=== PATIENT | female | born 1945 | race Caucasian/White ===

== ENCOUNTER 2017-06-24 06:33 | Inpatient (IN) | payer MEDICARE, BC ==
[2017-06-24] MEDS ORDERED: Albuterol/Ipratropium NEB.SOL* Albuterol 2.5 MG/Ipratropium 0.5 MG 3 ML INH PRN (06:45)
[2017-06-24] MEDS ORDERED: Albuterol 2.5 MG/3 ML NEB.SOL* (0.083%) INH PRN ×2 (06:45→10:57)
[2017-06-24] MEDS ORDERED: methylPREDNISolone 125 MG* 2 ML VIAL IV ONE (06:46)
[2017-06-24] MEDS ORDERED: Levofloxacin 750 MG IVPREMIX(* 750 MG/150 ML BAG IVPB ONE (06:46)
[2017-06-24] MEDS ORDERED: Magnesium Sulfate 2 GM IV* 2 GM/50 ML BAG IVPB ONE (06:47)
[2017-06-24] MEDS ORDERED: Albuterol/Ipratropium NEB.SOL* Albuterol 2.5 MG/Ipratropium 0.5 MG 3 ML ONE (07:37)
[2017-06-24] MEDS ORDERED: Albuterol 2.5 MG/3 ML NEB.SOL* (0.083%) ONE (07:38)
[2017-06-24] MEDS: NS 0.9% 1000 ML*IV.FLUID IV ONE ×2 (08:08→09:57)
[2017-06-24 08:15] LABS: ABS Basophils 0 10^3/ul (0-0.2); ABS Eosinophils 0.1 10^3/ul (0-0.6); ABS Lymphocytes 0.8 10^3/ul (1.0-4.8); ABS Monocytes 0.6 10^3/ul (0-0.8); ABS Nucleated RBC 0 10^3/ul; Eosinophil % 0.6 % (0-6); Hematocrit 44 % (35-47); Hemoglobin 14.4 g/dl (12.0-16.0); Lymphocyte % 6.7 % (25-47); Mean Corpuscular HGB Conc 33 g/dl (31-36); Mean Corpuscular Hemoglobin 30 pg (27-31); Mean Corpuscular Volume 92 fL (80-97); Mean Platelet Volume 7 um3 (7.4-10.4); Nucleated Red Blood Cells % 0.2; Platelet Count 508 10^3/ul (150-450); Red Blood Count 4.75 10^6/ul (4.0-5.4); Red Cell Distribution Width 14 % (10.5-15); White Blood Count 12.5 10^3/ul (3.5-10.8)
[2017-06-24 08:22] LABS: INR 1.09 (0.77-1.02)
[2017-06-24 08:27] LABS: EGFR Non-African American 110.4 (>60)
--- NOTE | 2017-06-24 09:36 | RAD ---
Indication: Shortness of breath. Chronic obstructive pulmonary disease. Comparison: December 12, 2015 Technique: Upright AP 0703 hours Report: Elevated lung volumes and both diffuse mild prominence of the interstitial markings and patchy rarefaction of the mid to upper lung zone interstitial markings. Upper normal heart size. Prominent mildly ill-defined central pulmonary vasculature. Subtle suggestion of thickened peripheral interlobular septa. Minimal dependent pleural effusions. Negative for pneumothorax. IMPRESSION: The constellation of findings is most suspicious for mild pulmonary vascular congestion and interstitial edema superimposed on chronic obstructive pulmonary disease in the appropriate clinical setting.
[2017-06-24] MEDS ORDERED: Acetaminophen TAB* 325 MG PO PRN (10:53)
[2017-06-24] MEDS ORDERED: Azithromycin IV(*) 500 MG in D5W 250 ML BAG* 250 ML IVPB SCH (11:00)
[2017-06-24] MEDS ORDERED: Ondansetron INJ* 2 MG/ML VIAL IV PRN (11:31)
[2017-06-24] MEDS ORDERED: cefTRIAXone(*) 1 GM in NS 0.9% 50 ML* 50 ML IVPB SCH (12:00)
[2017-06-24] MEDS: Albuterol/Ipratropium NEB.SOL* Albuterol 2.5 MG/Ipratropium 0.5 MG 3 ML INH SCH ×4 (12:10→23:37)
[2017-06-24] MEDS: NS 0.9% 1000 ML* 1,000 ML IV SCH ×2 (12:26→21:19)
[2017-06-24] MEDS: cefTRIAXone(*) 1 GM in D5W 50 ML BAG* 50 ML IVPB SCH (13:10)
[2017-06-24] MEDS: Azithromycin IV(*) 500 MG in NS 0.9% 250 ML* 250 ML IVPB SCH (13:38)
[2017-06-24] MEDS: Heparin VIAL(*) 5000 UNITS/ML VIAL (FIVE THOUSAND) SUBCUT SCH ×2 (15:20→22:15)
[2017-06-24] MEDS: methylPREDNISolone SOD 40 MG* 1 ML VIAL IV SCH ×2 (15:22→23:36)
[2017-06-24 17:38] LABS: Urine Appearance Clear; Urine Blood Negative (Negative); Urine Color Straw; Urine Ketones Negative (Negative); Urine Protein Negative (Negative); Urine Specific Gravity 1.003 (1.010-1.030); Urine Urobilinogen Negative (Negative)
--- NOTE | 2017-06-24 18:41 | ED ---
Felix Espinoza Thomas, scribed for Darryl Vieyra MD on 06/24/17 at 0815 . Progress - Progress Note Progress Note: The patient is a sign out from Dr. Kiran, pending CXR and labs. The patient complains of shortness of breath, a productive cough, fever, and chills. She denies nausea, vomiting, and chest pain. Past medical history includes COPD. PHYSICAL EXAM: VITAL SIGNS: Reviewed. GENERAL: ~Patient is a well-developed and nourished female who is lying comfortable in the stretcher. ~Patient is not in any acute respiratory distress. HEAD AND FACE: No signs of trauma. ~No ecchymosis, hematomas or skull depressions. No sinus tenderness. EYES: PERRLA, EOMI x 2, No injected conjunctiva, no nystagmus. EARS: Hearing grossly intact. Ear canals and tympanic membranes are within normal limits. MOUTH: Oropharynx within normal limits. NECK: Supple, trachea is midline, no adenopathy, no JVD, no carotid bruit, no c- spine tenderness, neck with full ROM. CHEST: Symmetric, no tenderness at palpation LUNGS: Decreased breath sounds bilaterally. There are crackles in both bases. CVS: Regular rate and rhythm, S1 and S2 present, no murmurs or gallops appreciated. ABDOMEN: Soft, non-tender. No signs of distention. No rebound no guarding, and no masses palpated. Bowel sounds are normal. EXTREMITIES: FROM in all major joints, no edema, no cyanosis or clubbing. NEURO: Alert and oriented x 3. No acute neurological deficits. Speech is normal and follows commands. SKIN: Dry and warm CXR. Interpreted by radiologist. Impression: The constellation of findings is most suspicious for mild pulmonary vascular congestion and interstitial edema superimposed on chronic obstructive pulmonary disease in the appropriate clinical setting. Dr. Vieyra has reviewed this report. ASSESMENT AND PLAN: Test results show a WBC 12.5, CO2 34, troponin 0.04, BNP 265. Influenza A and B are negative. I believe the patient is developing right lower lobe pneumonia. The patient was given Levaquin. I discussed the case with Dr. Garcia, who accepts the patient for admission. Condition is stable. Course/Dx - Diagnoses Provider Diagnoses: COPD exacerbation, Pneumonia - Provider Notifications Discussed Care Of Patient With: Jade Garcia Time Discussed With Above Provider: 11:43 Instructed by Provider To: Admit As Inpatient The documentation as recorded by the Felix pérez Thomas accurately reflects the service I personally performed and the decisions made by me, Darryl Vieyra MD.
--- NOTE | 2017-06-24 19:12 | HP ---
CC: Dr. Alas * ADMISSION HISTORY AND PHYSICAL: DATE OF ADMISSION: PRIMARY CARE PROVIDER: Dr. Alas. MY ATTENDING WHILE IN THE HOSPITAL: Dr. Jade Garcia.* (DICTATED BY LYDIA CAPELLAN) CHIEF COMPLAINT: Severe dyspnea on exertion for 1 day. HISTORY OF PRESENT ILLNESS: Ms. Ames is a 72-year-old female with a past medical history significant for severe COPD, diastolic congestive heart failure , who was admitted to this institution in November 2015 for severe lobar pneumonia. The patient also has chronic hypoxic and hypercarbic respiratory failure needing 2 L of oxygen at home at all times. The patient presents to the emergency department today with 1 day of severe dyspnea on exertion being unable to around her small apartment without getting short of breath. The patient states she also had presyncope, where she felt lightheaded like she was going to pass out without palpitations, chest pain, or other prodrome of symptoms. She just felt severely short of breath. The patient has had 1-1/2 half weeks of stuffiness, nasal congestion, cough producing light yellow sputum without blood or purulence. The patient states that she and her whole family have gotten this similar. The patient denies any sick contacts with patients with known flu. The patient has muscle aches, diarrhea, abdominal pain. The patient has subjective and objective temperature elevations up to 100.8. The patient states that her temperature generally runs low, so she very rarely gets fever. The patient was on 2 L of oxygen at home, but had to increase it to 3 L during her illness, but did not have severe respiratory distress until yesterday. The patient has not had any episodes like this before except for her episode of pneumonia 2 years ago, after which the patient was at [facility] after her discharge here 2 years ago and was there for a month and then was discharged to home where she has been functioning well until now. The patient does not take her Combivent Respimat frequently but took it a couple of times during her respiratory distress and states it helps a little bit. The patient denies chest pain, increased swelling in her legs. The patient has intermittent swelling in her legs for which she takes Lasix as needed with good effect. The patient has no other changes in her diet. The patient denies history of hypertension, hyperlipidemia, diabetes. The patient has not smoked recently. We were asked to evaluate for admission due to respiratory distress. PAST MEDICAL HISTORY: COPD, diastolic CHF, pneumonia, chronic hypoxic, hypercapnic respiratory failure requiring 2 L of oxygen. PAST SURGICAL HISTORY: Cholecystectomy, tonsillectomy, and bilateral cataract removal. MEDICATIONS: 1. Singulair 10 mg p.o. daily. 2. Furosemide 10 mg p.o. daily as needed for leg swelling. 3. Symbicort 160/4.5 two puffs inhalation b.i.d. 4. Spiriva cap 1 inhalation daily. 5. Combivent Respimat 1 puff 2 inhalations q.6 hours as needed for shortness of breath and wheezing. ALLERGIES: IBUPROFEN. FAMILY HISTORY: The patient's mother of cancer when she was 91, had COPD exacerbations. The patient's father of colon cancer, which was metastatic from his lungs at the age of 86. The patient's grandfather had a myocardial infarction. The patient has a son with type 2 diabetes. The patient has 3 children, 2 of which are alive and healthy. SOCIAL HISTORY: The patient is a former smoker, quit in 1994. The patient denies any alcohol use. The patient denies ever using illicit drugs. 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 The patient was in her 40s. Has a second from which she is . Had 3 children with her first . The patient's healthcare proxy is her son, Sancho Sims. REVIEW OF SYSTEMS: A 14-point review of systems was completed and is negative except as stated in the HPI. PHYSICAL EXAMINATION GENERAL: The patient is a 72-year-old female, who appears stated age and sitting in the bed, in moderate distress in a tripod position with significantly increased work of breathing including accessory muscle use. VITAL SIGNS: On arrival to the emergency department, temperature 98.3, heart rate 115, respiratory rate 20, oxygen saturation 83% on 5 L nasal cannula, increased to 91% on 8 L, blood pressure 137/72. HEENT: Head: Normocephalic, atraumatic. Sclerae anicteric. No conjunctival injection. Nasal mucosa is moist. Oral mucosa moist. No pharyngeal erythema, discharge, postnasal drainage, or exudates noted. NECK: Supple, nontender. No lymphadenopathy. No carotid bruits auscultated. RESPIRATORY: Diminished throughout. Slight expiratory wheezes with prolonged expiratory phase in the bilateral lower lobes. No other adventitious lung sounds. Good air exchange bilaterally. Negative egophony. CARDIAC: Tachycardic. No clicks, murmurs, gallops, or rubs. Pulses 2+ in bilateral radial, dorsalis pedis, and posterior tibialis areas. 1+ edema noted in the bilateral lower extremities. ABDOMEN: Soft, nontender, nondistended. Bowel sounds present, normoactive in all 4 quadrants. No hepatosplenomegaly. No abdominal bruits auscultated. GENITOURINARY: No suprapubic tenderness or CVA tenderness. NEURO: Cranial nerves II through XII intact. No focal deficits. PSYCHIATRIC: The patient is pleasant and cooperative. SKIN: Clean, dry, intact. No rash. No bruising. DIAGNOSTIC STUDIES/LAB DATA: White blood cell count 12.5, hemoglobin 14.4, platelet count 508, neutrophil percentage 88%. INR 1.09, APTT 31.1. ABG pH 7.42, ABG PCO2 6.3, ABG PO2 67, ABG bicarbonate 35.4, ABG oxygen saturation 97% , ABG base excess 13.5. Sodium 131, potassium 4.3, chloride 89, carbon dioxide 34, anion gap 8, BUN 10, creatinine 0.54, glucose 153. Lactic acid 1.5. Calcium 9.8. Total bilirubin 0.4, AST 20, ALT 8, alkaline phosphatase 69. Troponin I 0.04. CRP 265.34. BNP 74. Total protein 8.0. Albumin 3.5, globulin 4.5, albumin, globulin ratio of 0.8. Chest x-ray read as constellation of findings most suspicious for mild pulmonary vascular congestion, interstitial edema, superimposed on chronic obstructive pulmonary disease in appropriate clinical setting. An EKG showed sinus tachycardia, regular axis, no ST-segment changes, no other abnormalities. IMPRESSION AND PLAN: The patient is a 72-year-old female with a past medical history significant for chronic obstructive pulmonary disease, pneumonia, diastolic congestive heart failure, and chronic hypoxic and hypercarbic respiratory failure on 2 L oxygen at home, who presents with a viral illness and chronic obstructive pulmonary disease exacerbation. The patient will be admitted to the ICU for Vapotherm to avoid exhaustion. The patient was started on empiric antibiotics for chronic obstructive pulmonary disease exacerbation and possible pneumonia. The patient will be started on steroids and will be treated for chronic obstructive pulmonary disease exacerbation. 1. Chronic obstructive pulmonary disease exacerbation. The patient has a viral upper respiratory infection for 1-1/2 weeks at this point, which has been exacerbating her underlying pulmonary disease. This has culminated in the patient needing to come to the emergency department today because she could not walk across her short apartment without becoming significantly short of breath and presyncopizing. The patient has had a productive cough for the duration of her upper respiratory illness with white sputum without blood. The patient has no signs of lobar pneumonia on chest x-ray. The patient's CRP is significantly elevated. We will order an influenza swab, which is pending and a procalcitonin , which is pending. Hold off on giving Tamiflu at this point, but we will give antibiotics for their anti-inflammatory effects and discontinue as indicated. The patient will be started on Solu-Medrol 40 mg IV q.8 hours. The patient will be on DuoNeb inhalations q.4 hours while awake as scheduled. The patient will be continued on her home Symbicort, Singulair, and Spiriva. The patient will be given guaifenesin for pulmonary toilet. The patient's ABG showed normal pH, elevated CO2, decreased pO2. The patient will be started on Vapotherm to avoid exhaustion and will be tapered off as tolerated. 2. Diastolic congestive heart failure. The patient was found to have indications of diastolic congestive heart failure on her echo previously in the hospital. The patient had intermittent leg swelling. The patient will be continued on her home dose of Lasix. The patient will be getting judicious fluids. The patient received 2.5 L while in the hospital. While in the emergency department, the patient will receive 2 additional units of 125 mL an hour and monitored for fluid overload. The patient will be on strict I and O's and daily weights. 3. Elevated troponin. The patient's initial troponin was 0.04. Repeat pending. This is likely due to demand ischemia. The patient has no symptoms or EKG evidence of ischemia. We will draw 3 total troponins. We will order hemoglobin A1c and lipid panel to assess for the patient's risk of myocardial infarction and the patient may be eligible for outpatient stress testing when she is not in acute illness. 4. FEN. The patient will have a heart healthy diet without caffeine. The patient will have fluids as above. 5. DVT prophylaxis. The patient is high risk. The patient will have heparin subcu and SCDs. 6. Code status. The patient would like to be a full code despite being listed as DNR in the computer. The patient's healthcare proxy is her son, Sancho Sims. TIME SPENT: Approximately 60 minutes was spent on this admission, 30 of which was spent [id number] with the patient obtaining history and physical and discussing treatment plan. This plan has been discussed with my attending, Dr. Jade Garcia, and she is in agreement. LYDIA CAPELLAN [id number]/CPS #: [id number] CLAIRE
--- NOTE | 2017-06-24 19:30 | ED ---
Vidal Espinoza Jason, scribed for Dean Kiran MD on 06/24/17 at 0650 . Shortness of Breath - HPI Summary HPI Summary: This patient is a 72 year old F presenting to [facility] with a chief complaint of SOB since 2 weeks ago. She states she has felt sick for 2 weeks and woke up today with increased SOB. The patient rates the pain 0/10 in severity. Symptoms aggravated by nothing. Symptoms alleviated by nothing. Patient reports experiencing fever in the last 2 weeks. - History of Current Complaint Chief Complaint: EDGeneral Hx Obtained From: Patient Onset/Duration: Lasting Weeks - 2 weeks Timing: Constant Associated Signs & Symptoms: Fever - Allergy/Home Medications Allergies/Adverse Reactions: Allergies Allergy/AdvReac Type Severity Reaction Status Date / Time MS Ibuprofen [Ibuprofen] Allergy Swelling Verified 06/24/17 06:38 Of Face,Lips,& Throat PMH/Surg Hx/FS Hx/Imm Hx Previously Healthy: No Endocrine/Hematology History: Denies: Hx Diabetes, Hx Systemic Lupus Erythematosus Cardiovascular History: Denies: Hx Congestive Heart Failure, Hx Hypertension Respiratory History: Reports: Hx Chronic Obstructive Pulmonary Disease (COPD) History: Denies: Hx Dialysis, Hx Renal Disease Musculoskeletal History: Denies: Hx Rheumatoid Arthritis Sensory History: Reports: Hx Contacts or Glasses Opthamlomology History: Reports: Hx Contacts or Glasses - Cancer History Hx Chemotherapy: No - Surgical History Surgery Procedure, Year, and Place: Gall Bladder removal. Tonsillectomy. OU Cataract extraction. Cholecystetomy - Immunization History Date of Tetanus Vaccine: utd Date of Influenza Vaccine: none Infectious Disease History: Yes Infectious Disease History: Denies: Hx of Known/Suspected MRSA, Traveled Outside the [place] in Last 30 Days - Family History Known Family History: Negative: Renal Disease, Blood Disorder - Social History Alcohol Use: None Substance Use Type: Reports: None Smoking Status (MU): Former Smoker Type: Cigarettes Review of Systems Positive: Fever Positive: Shortness Of Breath All Other Systems Reviewed And Are Negative: Yes Physical Exam - Summary Physical Exam Summary: VITAL SIGNS: Reviewed. GENERAL: ~Patient is a well-developed and nourished female who is lying comfortable in the stretcher. Patient is not in any acute respiratory distress. HEAD AND FACE: No signs of trauma. No ecchymosis, hematomas or skull depressions. No sinus tenderness. EYES: PERRLA, EOMI x 2, No injected conjunctiva, no nystagmus. EARS: Hearing grossly intact. Ear canals and tympanic membranes are within normal limits. MOUTH: Oropharynx within normal limits. NECK: Supple, trachea is midline, no adenopathy, no JVD, no carotid bruit, no c- spine tenderness, neck with full ROM. CHEST: Symmetric, no tenderness at palpation LUNGS: Decreased breath sounds bilaterally, tachypnic, No wheezing or crackles. CVS: Regular rate and rhythm, S1 and S2 present, no murmurs or gallops appreciated. tachycardic. ABDOMEN: Soft, non-tender. No signs of distention. No rebound no guarding, and no masses palpated. Bowel sounds are normal. EXTREMITIES: FROM in all major joints, no edema, no cyanosis or clubbing. NEURO: Alert and oriented x 3. No acute neurological deficits. Speech is normal and follows commands. SKIN: Dry and warm Triage Information Reviewed: Yes Vital Signs On Initial Exam: Initial Vitals Temp Pulse Resp BP Pulse Ox 98.3 F 115 20 137/72 83 06/24/17 06:36 06/24/17 06:36 06/24/17 06:36 06/24/17 06:36 06/24/17 06:36 Vital Signs Reviewed: Yes Diagnostics - Vital Signs Vital Signs Temp Pulse Resp BP Pulse Ox 06/24/17 06:36 98.3 F 115 20 137/72 83 - Laboratory Lab Statement: Any lab studies that have been ordered have been reviewed, and results considered in the medical decision making process. Course/Dx - Course Course Of Treatment: This patient is a 72 year old F presenting to [facility] with a chief complaint of SOB since 2 weeks ago. She states she has felt sick for 2 weeks and woke up today with increased SOB. The patient rates the pain 0/10 in severity. Symptoms aggravated by nothing. Symptoms alleviated by nothing. Patient reports experiencing fever in the last 2 weeks. In the ED course the patient was given IV Fluids. - Diagnoses Provider Diagnoses: Difficulty breathing Discharge - Discharge Plan Condition: Fair Disposition: OTHER Discharge Disposition Comment: Patient is signed out to Dr. Vieyra, pending disposition, awaiting CXR, labs Referrals: Arsalan Alas MD [Primary Care Provider] - The documentation as recorded by the Vidal pérez Jason accurately reflects the service I personally performed and the decisions made by me, Dean Kiran MD.
[2017-06-24] MEDS: Mometasone/Formoter 200/5 MDI INH SCH (20:14)
[2017-06-24] MEDS: guaiFENesin ER TAB 600 MG PO SCH (22:14)
[2017-06-25] MEDS: Albuterol/Ipratropium NEB.SOL* Albuterol 2.5 MG/Ipratropium 0.5 MG 3 ML INH SCH ×5 (03:47→20:03)
[2017-06-25 04:06] LABS: Hematocrit 34 % (35-47); Hemoglobin 10.8 g/dl (12.0-16.0); Mean Corpuscular HGB Conc 32 g/dl (31-36); Mean Corpuscular Hemoglobin 29 pg (27-31); Mean Corpuscular Volume 92 fL (80-97); Mean Platelet Volume 7 um3 (7.4-10.4); Platelet Count 449 10^3/ul (150-450); Red Blood Count 3.68 10^6/ul (4.0-5.4); Red Cell Distribution Width 14 % (10.5-15); White Blood Count 12.8 10^3/ul (3.5-10.8)
[2017-06-25 04:21] LABS: ABS Basophils 0 10^3/ul (0-0.2); ABS Eosinophils 0 10^3/ul (0-0.6); ABS Lymphocytes 0.6 10^3/ul (1.0-4.8); ABS Monocytes 0.2 10^3/ul (0-0.8); ABS Nucleated RBC 0 10^3/ul; Eosinophil % 0 % (0-6); Lymphocyte % 4.5 % (25-47); Nucleated Red Blood Cells % 0.1
[2017-06-25 04:39] LABS: EGFR Non-African American 139.8 (>60)
[2017-06-25] MEDS: Heparin VIAL(*) 5000 UNITS/ML VIAL (FIVE THOUSAND) SUBCUT SCH ×3 (06:27→22:27)
[2017-06-25] MEDS: Mometasone/Formoter 200/5 MDI INH SCH ×2 (07:59→20:04)
[2017-06-25] MEDS: methylPREDNISolone SOD 40 MG* 1 ML VIAL IV SCH ×2 (08:12→16:30)
[2017-06-25] MEDS ORDERED: Tiotropium CAP.INH* CAP.INH/18 MCG (USE ORDER SET !) INH SCH (09:00)
[2017-06-25] MEDS ORDERED: Influenza VAC *QUAD* 2017-18* 0.5 ML SYRINGE IM ONE (09:00)
[2017-06-25] MEDS ORDERED: Furosemide TAB* 20 MG PO SCH (09:00)
[2017-06-25] MEDS ORDERED: Furosemide IV* 10 MG/ML VIAL (40 MG) IV ONE (09:22)
--- NOTE | 2017-06-25 09:30 | PN ---
Subjective Date of Service: 06/25/17 Interval History: Pt continues to feel SOB and desats when moves in bed on Vapotherm at 40 L, denies CP Objective Active Medications: Acetaminophen (Tylenol Tab*) 650 mg PO Q6H PRN PRN Reason: FEVER/PAIN Albuterol (Ventolin 2.5 Mg/3 Ml Neb.Joselyn*) 2.5 mg INH Q2H PRN PRN Reason: SOB/WHEEZING Albuterol/Ipratropium (Duoneb (Albuterol 2.5 Mg/Ipratropium 0.5 Mg)) 1 neb INH [id number] Last Admin: 06/25/17 07:53 Dose: 1 neb Furosemide (Lasix Tab*) 10 mg PO DAILY [facility] Stop: 06/25/17 23:59 Furosemide (Lasix Iv*) 40 mg IV 0800,1700 [facility] Guaifenesin (Mucinex*) 1,200 mg PO BID [facility] Last Admin: 06/24/17 22:14 Dose: 1,200 mg Heparin Sodium (Porcine) (Heparin Vial(*)) 5,000 units SUBCUT Q8HR [facility] Last Admin: 06/25/17 06:27 Dose: 5,000 units Sodium Chloride (Ns 0.9% 1000 Ml*) 1,000 mls @ 125 mls/hr IV PER RATE [facility] Stop: 06/25/17 18:59 Last Admin: 06/24/17 21:19 Dose: 125 mls/hr Azithromycin 500 mg/ Sodium (Chloride) 250 mls @ 250 mls/hr IVPB Q24H [facility] Last Admin: 06/24/17 13:38 Dose: 250 mls/hr Ceftriaxone Sodium 1 gm/ (Dextrose) 50 mls @ 200 mls/hr IVPB Q24H [facility] Last Admin: 06/24/17 13:10 Dose: 200 mls/hr Methylprednisolone Sodium Succinate (Solu-Medrol 40 Mg) 40 mg IV 0000,0800, 1600 [facility] Last Admin: 06/25/17 08:12 Dose: 40 mg Mometasone Furoate/Formoterol Fumar (Dulera 200/5 Mdi*) 2 puff INH BID [facility] PRN Reason: Protocol Last Admin: 06/25/17 07:59 Dose: 2 puff Montelukast Sodium (Singulair Tab*) 10 mg PO BEDTIME STEVE Ondansetron HCl (Zofran Inj*) 4 mg IV Q6H PRN PRN Reason: NAUSEA Vital Signs - 8 hr 06/25/17 06/25/17 06/25/17 02:00 03:00 03:42 Temperature 97.4 F Pulse Rate 74 79 Respiratory 22 17 Rate Blood Pressure 117/55 112/68 (mmHg) O2 Sat by Pulse 94 94 Oximetry 06/25/17 06/25/17 06/25/17 04:00 05:00 06:00 Temperature Pulse Rate 78 79 73 Respiratory 21 20 21 Rate Blood Pressure 109/69 (mmHg) O2 Sat by Pulse 91 90 92 Oximetry 06/25/17 06/25/17 06/25/17 06:09 07:00 07:31 Temperature 98.1 F Pulse Rate 72 66 Respiratory 21 24 Rate Blood Pressure 101/54 96/53 (mmHg) O2 Sat by Pulse 93 93 Oximetry 06/25/17 06/25/17 06/25/17 07:57 08:00 08:01 Temperature Pulse Rate 77 81 78 Respiratory 18 18 24 Rate Blood Pressure 127/66 (mmHg) O2 Sat by Pulse 92 94 96 Oximetry Oxygen Devices in Use Now: High Flow Heated Nasal Cannula Appearance: 72 yo F in nAD, AAOx3 Eyes: No Scleral Icterus, PERRLA Ears/Nose/Mouth/Throat: NL Teeth, Lips, Gums, Mucous Membranes Moist Neck: NL Appearance and Movements; NL JVP, Trachea Midline Respiratory: Symmetrical Chest Expansion and Respiratory Effort, - - very decreased breath sounds and rales up to lowr mid lungs b/l Cardiovascular: NL Sounds; No Murmurs; No JVD, RRR Abdominal: NL Sounds; No Tenderness; No Distention Lymphatic: No Cervical Adenopathy Extremities: No Edema, No Clubbing, Cyanosis Skin: No Rash or Ulcers, No Nodules or Sclerosis Neurological: Alert and Oriented x 3, NL Muscle Strength and Tone Result Diagrams: 06/25/17 04:00 06/25/17 04:00 Microbiology and Other Data: Microbiology 06/24/17 17:25 Legionella Urinary Antigen - Final Urine Negative Legionella Streptococcus pneumoniae Ag Screen - Final Negative S. pneumo Antigen 06/24/17 17:25 Nasal Screen MRSA (PCR)([facility]) - Final Nasal Mrsa Not Detected Assess/Plan/Problems-Billing Assessment: 72 yo F with h/o COPD(on 02 at 2 L), diastolic CHF presents after an URI lasting 2 weeks with acute respiratory failure - Patient Problems (1) COPD exacerbation Comment: cont Solu Medrol, cont STEVE nebs and antibiotics for acute COPD exacerbation (2) Acute hypoxemic respiratory failure Comment: On Vapotherm at 40 L due to a combination of CHF and COPD (3) CHF (congestive heart failure) Comment: Start Lasix IV, d/c PO Lasix, get echo in aM troponin positive due to demand ischemia (4) DVT prophylaxis Comment: Heparin sub q Status and Disposition: inpatient
[2017-06-25] MEDS: guaiFENesin ER TAB 600 MG PO SCH ×2 (09:41→22:27)
[2017-06-25] MEDS: cefTRIAXone(*) 1 GM in D5W 50 ML BAG* 50 ML IVPB SCH (13:06)
[2017-06-25] MEDS: Azithromycin IV(*) 500 MG in NS 0.9% 250 ML* 250 ML IVPB SCH (13:26)
[2017-06-25] MEDS: Furosemide IV* 10 MG/ML 10 ML VIAL (100 MG) IV SCH (16:30)
[2017-06-25] MEDS: Montelukast Sodium TAB* 10 MG PO SCH (22:27)
[2017-06-26] MEDS: Albuterol/Ipratropium NEB.SOL* Albuterol 2.5 MG/Ipratropium 0.5 MG 3 ML INH SCH ×4 (00:45→19:14)
[2017-06-26] MEDS: methylPREDNISolone SOD 40 MG* 1 ML VIAL IV SCH ×3 (01:30→16:17)
[2017-06-26] MEDS: Heparin VIAL(*) 5000 UNITS/ML VIAL (FIVE THOUSAND) SUBCUT SCH ×3 (06:15→21:19)
[2017-06-26 06:45] LABS: ABS Basophils 0 10^3/ul (0-0.2); ABS Eosinophils 0 10^3/ul (0-0.6); ABS Lymphocytes 0.6 10^3/ul (1.0-4.8); ABS Monocytes 0.4 10^3/ul (0-0.8); ABS Nucleated RBC 0 10^3/ul; Eosinophil % 0 % (0-6); Hematocrit 36 % (35-47); Hemoglobin 11.6 g/dl (12.0-16.0); Lymphocyte % 3.5 % (25-47); Mean Corpuscular HGB Conc 33 g/dl (31-36); Mean Corpuscular Hemoglobin 30 pg (27-31); Mean Corpuscular Volume 91 fL (80-97); Mean Platelet Volume 7 um3 (7.4-10.4); Nucleated Red Blood Cells % 0; Platelet Count 552 10^3/ul (150-450); Red Blood Count 3.89 10^6/ul (4.0-5.4); Red Cell Distribution Width 14 % (10.5-15)
[2017-06-26 06:57] LABS: EGFR Non-African American 129.5 (>60)
[2017-06-26] MEDS: Mometasone/Formoter 200/5 MDI INH SCH ×2 (08:24→19:14)
[2017-06-26] MEDS: guaiFENesin ER TAB 600 MG PO SCH ×2 (09:20→21:18)
[2017-06-26] MEDS: Furosemide IV* 10 MG/ML 10 ML VIAL (100 MG) IV SCH (10:02)
--- NOTE | 2017-06-26 10:17 | PN ---
Subjective Date of Service: 06/26/17 Interval History: Pt had diuresed 2200 ml at night. Down to 10 L Nc. Still feeling very weak Objective Active Medications: Acetaminophen (Tylenol Tab*) 650 mg PO Q6H PRN PRN Reason: FEVER/PAIN Albuterol (Ventolin 2.5 Mg/3 Ml Neb.Joselyn*) 2.5 mg INH Q2H PRN PRN Reason: SOB/WHEEZING Last Admin: 06/25/17 16:31 Dose: 2.5 mg Albuterol/Ipratropium (Duoneb (Albuterol 2.5 Mg/Ipratropium 0.5 Mg)) 1 neb INH [id number] AWAKE [facility] Last Admin: 06/26/17 08:27 Dose: 1 neb Furosemide (Lasix Iv*) 40 mg IV 0800,1700 [facility] Stop: 06/26/17 14:00 Last Admin: 06/26/17 10:02 Dose: 40 mg Guaifenesin (Mucinex*) 1,200 mg PO BID [facility] Last Admin: 06/26/17 09:20 Dose: 1,200 mg Heparin Sodium (Porcine) (Heparin Vial(*)) 5,000 units SUBCUT Q8HR [facility] Last Admin: 06/26/17 06:15 Dose: 5,000 units Azithromycin 500 mg/ Sodium (Chloride) 250 mls @ 250 mls/hr IVPB Q24H [facility] Last Admin: 06/25/17 13:26 Dose: 250 mls/hr Ceftriaxone Sodium 1 gm/ (Dextrose) 50 mls @ 200 mls/hr IVPB Q24H [facility] Last Admin: 06/25/17 13:06 Dose: 200 mls/hr Methylprednisolone Sodium Succinate (Solu-Medrol 40 Mg) 40 mg IV 0000,0800, 1600 [facility] Last Admin: 06/26/17 09:20 Dose: 40 mg Mometasone Furoate/Formoterol Fumar (Dulera 200/5 Mdi*) 2 puff INH BID STEVE PRN Reason: Protocol Last Admin: 06/26/17 08:24 Dose: 2 puff Montelukast Sodium (Singulair Tab*) 10 mg PO BEDTIME [facility] Last Admin: 06/25/17 22:27 Dose: 10 mg Ondansetron HCl (Zofran Inj*) 4 mg IV Q6H PRN PRN Reason: NAUSEA Vital Signs - 8 hr 06/26/17 06/26/17 06/26/17 03:00 04:00 05:00 Temperature 98 F Pulse Rate 83 61 69 Respiratory 19 19 18 Rate Blood Pressure 124/72 124/55 127/74 (mmHg) O2 Sat by Pulse 97 96 94 Oximetry 06/26/17 06/26/17 06/26/17 06:00 06:01 07:00 Temperature Pulse Rate 80 78 66 Respiratory 22 17 19 Rate Blood Pressure 137/65 124/62 (mmHg) O2 Sat by Pulse 94 94 95 Oximetry 06/26/17 06/26/17 06/26/17 07:42 08:00 08:28 Temperature 98.2 F Pulse Rate 70 72 Respiratory 20 14 Rate Blood Pressure 131/61 (mmHg) O2 Sat by Pulse 95 94 Oximetry 06/26/17 06/26/17 06/26/17 08:29 09:00 09:01 Temperature Pulse Rate 72 96 85 Respiratory 14 22 21 Rate Blood Pressure 135/58 (mmHg) O2 Sat by Pulse 94 95 95 Oximetry 06/26/17 10:00 Temperature Pulse Rate 109 Respiratory 20 Rate Blood Pressure 115/63 (mmHg) O2 Sat by Pulse 95 Oximetry Oxygen Devices in Use Now: High Flow Nasal Cannula Appearance: 72 yo f in nAD, AAOx3 Eyes: No Scleral Icterus, PERRLA Ears/Nose/Mouth/Throat: NL Teeth, Lips, Gums, Mucous Membranes Moist Neck: NL Appearance and Movements; NL JVP, Trachea Midline Respiratory: Symmetrical Chest Expansion and Respiratory Effort, - - b/l lowwr lung rhonchi and scant wheezes Cardiovascular: NL Sounds; No Murmurs; No JVD, RRR Abdominal: NL Sounds; No Tenderness; No Distention, No Hepatosplenomegaly Lymphatic: No Cervical Adenopathy Extremities: No Edema, No Clubbing, Cyanosis Skin: No Rash or Ulcers, No Nodules or Sclerosis Neurological: Alert and Oriented x 3, NL Muscle Strength and Tone Result Diagrams: 06/26/17 06:03 06/26/17 06:03 Microbiology and Other Data: Microbiology 06/24/17 17:25 Legionella Urinary Antigen - Final Urine Negative Legionella Streptococcus pneumoniae Ag Screen - Final Negative S. pneumo Antigen 06/24/17 17:25 Nasal Screen MRSA (PCR)(LITO) - Final Nasal Mrsa Not Detected Assess/Plan/Problems-Billing Assessment: 72 yo F with h/o COPD(on 02 at 2 L), diastolic CHF presents after an URI lasting 2 weeks with acute respiratory failure - Patient Problems (1) COPD exacerbation Comment: cont Solu Medrol, cont STEVE nebs and antibiotics for acute COPD exacerbation Worsening leukocytosis due to steroids (2) Acute hypoxemic respiratory failure Comment: due to a combination of CHF and COPD down to 10 L02 (3) CHF (congestive heart failure) Comment: will tx with another dose of Lasix IV, then hold and monitor troponin positive due to demand ischemia Echo ordered (4) DVT prophylaxis Comment: Heparin sub q Status and Disposition: inpatient
[2017-06-26] MEDS: cefTRIAXone(*) 1 GM in D5W 50 ML BAG* 50 ML IVPB SCH (12:34)
[2017-06-26] MEDS: Azithromycin IV(*) 500 MG in NS 0.9% 250 ML* 250 ML IVPB SCH (13:05)
[2017-06-26] MEDS: Nystatin TOP POWDER* 15 GM BTL TOPICAL SCH ×2 (13:36→21:19)
[2017-06-26] MEDS: Montelukast Sodium TAB* 10 MG PO SCH (21:18)
[2017-06-27] MEDS: methylPREDNISolone SOD 40 MG* 1 ML VIAL IV SCH ×3 (00:24→15:49)
[2017-06-27] MEDS: Albuterol/Ipratropium NEB.SOL* Albuterol 2.5 MG/Ipratropium 0.5 MG 3 ML INH SCH ×4 (00:59→19:31)
[2017-06-27] MEDS: Heparin VIAL(*) 5000 UNITS/ML VIAL (FIVE THOUSAND) SUBCUT SCH ×3 (05:53→20:45)
[2017-06-27 06:21] LABS: ABS Basophils 0 10^3/ul (0-0.2); ABS Eosinophils 0 10^3/ul (0-0.6); ABS Lymphocytes 0.5 10^3/ul (1.0-4.8); ABS Monocytes 0.3 10^3/ul (0-0.8); ABS Neutrophils 9.6 10^3/ul (1.5-7.7); ABS Nucleated RBC 0 10^3/ul; Eosinophil % 0.1 % (0-6); Hematocrit 38 % (35-47); Hemoglobin 12.2 g/dl (12.0-16.0); Lymphocyte % 4.5 % (25-47); Mean Corpuscular HGB Conc 32 g/dl (31-36); Mean Corpuscular Hemoglobin 30 pg (27-31); Mean Corpuscular Volume 92 fL (80-97); Mean Platelet Volume 7 um3 (7.4-10.4); Nucleated Red Blood Cells % 0; Platelet Count 505 10^3/ul (150-450); Red Cell Distribution Width 15 % (10.5-15); White Blood Count 10.4 10^3/ul (3.5-10.8)
[2017-06-27 06:23] LABS: EGFR Non-African American 129.5 (>60)
[2017-06-27] MEDS: Mometasone/Formoter 200/5 MDI INH SCH ×2 (07:48→19:29)
[2017-06-27] MEDS ORDERED: LORazepam TAB(*) 0.5 MG PO PRN (09:19)
[2017-06-27] MEDS: guaiFENesin ER TAB 600 MG PO SCH ×2 (09:36→20:45)
--- NOTE | 2017-06-27 10:14 | PN ---
Subjective Date of Service: 06/27/17 Interval History: Pt felt very anxious this AM, was given a dose of Ativan. Overall feels better, but very weak Objective Active Medications: Acetaminophen (Tylenol Tab*) 650 mg PO Q6H PRN PRN Reason: FEVER/PAIN Albuterol (Ventolin 2.5 Mg/3 Ml Neb.Joselyn*) 2.5 mg INH Q2H PRN PRN Reason: SOB/WHEEZING Last Admin: 06/25/17 16:31 Dose: 2.5 mg Albuterol/Ipratropium (Duoneb (Albuterol 2.5 Mg/Ipratropium 0.5 Mg)) 1 neb INH [id number] AWAKE [facility] Last Admin: 06/27/17 07:48 Dose: 1 neb Guaifenesin (Mucinex*) 1,200 mg PO BID [facility] Last Admin: 06/27/17 09:36 Dose: 1,200 mg Heparin Sodium (Porcine) (Heparin Vial(*)) 5,000 units SUBCUT Q8HR [facility] Last Admin: 06/27/17 05:53 Dose: 5,000 units Azithromycin 500 mg/ Sodium (Chloride) 250 mls @ 250 mls/hr IVPB Q24H [facility] Last Admin: 06/26/17 13:05 Dose: 250 mls/hr Ceftriaxone Sodium 1 gm/ (Dextrose) 50 mls @ 200 mls/hr IVPB Q24H [facility] Last Admin: 06/26/17 12:34 Dose: 200 mls/hr Lorazepam (Ativan Tab(*)) 0.5 mg PO Q6H PRN PRN Reason: ANXIETY Last Admin: 06/27/17 09:36 Dose: 0.5 mg Methylprednisolone Sodium Succinate (Solu-Medrol 40 Mg) 40 mg IV 0000,0800, 1600 [facility] Last Admin: 06/27/17 09:36 Dose: 40 mg Mometasone Furoate/Formoterol Fumar (Dulera 200/5 Mdi*) 2 puff INH BID STEVE PRN Reason: Protocol Last Admin: 06/27/17 07:48 Dose: 2 puff Montelukast Sodium (Singulair Tab*) 10 mg PO BEDTIME [facility] Last Admin: 06/26/17 21:18 Dose: 10 mg Nystatin (Nystatin Top Powder*) 1 applic TOPICAL BID [facility] Last Admin: 06/26/17 21:19 Dose: 1 applic Ondansetron HCl (Zofran Inj*) 4 mg IV Q6H PRN PRN Reason: NAUSEA Vital Signs - 8 hr 06/27/17 06/27/17 06/27/17 02:34 03:00 03:21 Temperature Pulse Rate 63 Respiratory 18 23 18 Rate Blood Pressure 116/56 (mmHg) O2 Sat by Pulse 93 Oximetry 06/27/17 06/27/17 06/27/17 04:00 04:01 04:40 Temperature 97.5 F Pulse Rate 63 67 Respiratory 20 18 16 Rate Blood Pressure 126/70 (mmHg) O2 Sat by Pulse 94 95 Oximetry 06/27/17 06/27/17 06/27/17 05:00 05:01 05:57 Temperature Pulse Rate 63 53 Respiratory 25 20 15 Rate Blood Pressure 110/57 (mmHg) O2 Sat by Pulse 94 95 Oximetry 06/27/17 06/27/17 06/27/17 06:00 07:00 07:01 Temperature Pulse Rate 69 68 67 Respiratory 24 27 23 Rate Blood Pressure 129/60 127/68 (mmHg) O2 Sat by Pulse 92 92 94 Oximetry 06/27/17 06/27/17 06/27/17 07:07 07:51 08:00 Temperature 98.6 F Pulse Rate 67 76 Respiratory 23 16 25 Rate Blood Pressure 123/66 (mmHg) O2 Sat by Pulse 94 91 Oximetry 06/27/17 09:36 Temperature Pulse Rate Respiratory 21 Rate Blood Pressure (mmHg) O2 Sat by Pulse Oximetry Oxygen Devices in Use Now: High Flow Nasal Cannula - at 4L Appearance: 72 yo F in nAD, AAOx3 Eyes: No Scleral Icterus, PERRLA Ears/Nose/Mouth/Throat: NL Teeth, Lips, Gums, Mucous Membranes Moist Neck: NL Appearance and Movements; NL JVP, Trachea Midline, - Respiratory: Symmetrical Chest Expansion and Respiratory Effort, - - distant breath sounds b/l with scattered b/l mid lung rhonchi and wheezes Cardiovascular: NL Sounds; No Murmurs; No JVD, RRR Abdominal: NL Sounds; No Tenderness; No Distention, No Hepatosplenomegaly Lymphatic: No Cervical Adenopathy Extremities: No Edema, No Clubbing, Cyanosis Skin: No Rash or Ulcers, No Nodules or Sclerosis Neurological: Alert and Oriented x 3, NL Muscle Strength and Tone Result Diagrams: 06/27/17 05:50 06/27/17 05:50 Microbiology and Other Data: Microbiology 06/24/17 17:25 Legionella Urinary Antigen - Final Urine Negative Legionella Streptococcus pneumoniae Ag Screen - Final Negative S. pneumo Antigen 06/24/17 17:25 Nasal Screen MRSA (PCR)([facility]ITO) - Final Nasal Mrsa Not Detected Assess/Plan/Problems-Billing Assessment: 72 yo F with h/o COPD(on 02 at 2 L), diastolic CHF presents after an URI lasting 2 weeks with acute respiratory failure - Patient Problems (1) COPD exacerbation Comment: cont Solu Medrol, cont STEVE nebs and antibiotics for acute COPD exacerbation leukocytosis resolved (2) Acute hypoxemic respiratory failure Comment: due to a combination of CHF and COPD down to 4 L02, but still very frail respiratory state and gets SOB and anxius (3) CHF (congestive heart failure) Comment: treated with Lasix IV x 2 days. today appears to be in contraction alkalosis. Will hold and monitor troponin positive due to demand ischemia Echo ordered (4) DVT prophylaxis Comment: Heparin sub q Status and Disposition: inpatient
[2017-06-27] MEDS: Nystatin TOP POWDER* 15 GM BTL TOPICAL SCH ×3 (11:16→20:46)
[2017-06-27] MEDS ORDERED: Perflutren Lipid Microsphere* 3 ML VIAL ONE (12:41)
[2017-06-27] MEDS: cefTRIAXone(*) 1 GM in D5W 50 ML BAG* 50 ML IVPB SCH (13:53)
[2017-06-27] MEDS: Azithromycin IV(*) 500 MG in NS 0.9% 250 ML* 250 ML IVPB SCH (14:23)
--- NOTE | 2017-06-27 14:37 | ECHO ---
Patient: JEF BATISTA [facility] Rec#: [id number] : 1945 Date: 06/27/2017 Age: 72y Height: 157.5 cm / 62.0 in Weight: 76.2 kg / 167.9 lbs Sex: F BSA: 1.8 Room#: ICU 8 Admit Date#: 06/27/2017 Referring: Jade Garcia MD Reading: Bartolo Lovell MD Ware Dresser: Yecenia Amanda RN RDCS CC: Arsalan Alas MD Transthoracic Echocardiogram Indication: Dyspnea on exertion BP: 123/66 HR: 81 Rhythm: NSR Findings History: COPD, diastolic heart failure, former smoker, obesity Technical Comments: The study is technically limited due to patient body habitus. The study is technically limited due to the patient's history of COPD. The study is technically limited due to the patient's smoking history. Left Ventricle: The left ventricular chamber size is normal. There is no left ventricular hypertrophy. Global left ventricular wall motion and contractility are within normal limits. There is normal left ventricular systolic function. The estimated ejection fraction is 55-60%. The assessment of diastolic function is non-diagnostic. Left Atrium: The left atrial chamber size is normal. Right Ventricle: The right ventricle wall thickness is moderately increased. The right ventricular cavity size is normal. The right ventricular global systolic function is normal. Right Atrium: The right atrial cavity size is normal. Aortic Valve: The aortic valve structure is not well visualized. The aortic valve is trileaflet. The aortic valve leaflets are mildly thickened. There is no evidence of aortic regurgitation. There is no evidence of aortic stenosis. Mitral Valve: The mitral valve leaflets are mildly thickened. There is trace to mild mitral regurgitation. There is no evidence of mitral stenosis. Tricuspid Valve: The tricuspid valve leaflets are normal. There is trace to mild tricuspid regurgitation. There is evidence of mild to moderate pulmonary hypertension. There is no tricuspid stenosis. Pulmonic Valve: The pulmonic valve structure is not well visualized. Pericardium: There is no significant pericardial effusion. A pericardial fat pad is visualized. Aorta: There is no dilatation of the ascending aorta. The aortic arch is not well visualized. There is no dilation of the aortic root. Pulmonary Artery: The main pulmonary artery is not well visualized. Venous: The inferior vena cava is dilated. There is an approximate 50% respiratory change in the inferior vena cava dimension. Contrast: Definity was used to optimize study. A total of 3 ml of diluted Definity was given IV. Conclusions The study is technically limited due to patient body habitus. The study is technically limited due to the patient's history of COPD. The study is technically limited due to the patient's smoking history. Global left ventricular wall motion and contractility are within normal limits. There is normal left ventricular systolic function. The estimated ejection fraction is 55-60%. The assessment of diastolic function is non-diagnostic. No significant valvular disease: There is trace to mild mitral regurgitation. There is trace to mild tricuspid regurgitation. There is evidence of mild to moderate pulmonary hypertension. The right ventricle wall thickness is moderately increased. No significant change compared to report of study from 12/07/2015. Measurements Name Value Normal Range RVDdMajor (2D) 3.6 cm (2.2 - 4.4) RVAW (2D) 1 cm (0.2 - 0.5) RAd ISD 4CH 4.8 cm (3.4 - 4.9) RA (A4C)W 3.4 cm (2.9 - 4.6) IVSd (2D) 1 cm (0.6 - 1) LVPWd (2D) 1 cm (0.6 - 1) LVIDd (2D) 4.8 cm (3.6 - 5.4) Aortic Annulus 1.9 cm (1.4 - 2.6) Ao root diameter (2D) 2.8 cm (2.1 - 3.5) Ascending Ao 2.9 cm (2.1 - 3.4) LA dimension (AP) 2D 3 cm (2.3 - 3.8) LAd ISD 4CH 5.4 cm (2.9 - 5.3) LA ISD 4CH W 4.6 cm (2.5 - 4.5) Name Value Normal Range LA ESV SP 4CH (A/L) 57 ml - LA ESV SP 2CH (A/L) 56 ml - LA ESV BP (A/L) 58 ml - LA ESV BP (A/L) index 32.5 ml/m2 - LA ESV SP 4CH (MOD) 53 ml - LA ESV SP 2CH (MOD) 53 ml - Name Value Normal Range MV E-wave Vmax 0.69 m/sec - MV deceleration time 225 msec - MV A-wave Vmax 0.97 m/sec - MV E:A ratio 0.7 ratio - LV septal e' Vmax 0.06 m/sec - LV lateral e' Vmax 0.06 m/sec - LV E:e' septal ratio 11.5 ratio - LV E:e' lateral ratio 11.5 ratio - Name Value Normal Range AV Vmax 1.4 m/sec - AV VTI 31 cm - AV peak gradient 8 mmHg - AV mean gradient 4 mmHg - LVOT Vmax 0.98 m/sec - LVOT VTI 25.2 cm - LVOT peak gradient 3.9 mmHg - LVOT mean gradient 2 mmHg - Name Value Normal Range TR Vmax 2.6 m/sec - TR peak gradient 27 mmHg - RAP 15 mmHg - RVSP 42 mmHg - IVC diameter 2.3 cm - Name Value Normal Range PV Vmax 0.15 m/sec -
[2017-06-27] MEDS: Montelukast Sodium TAB* 10 MG PO SCH (20:45)
[2017-06-28] MEDS: methylPREDNISolone SOD 40 MG* 1 ML VIAL IV SCH ×3 (00:48→16:15)
[2017-06-28] MEDS: Albuterol/Ipratropium NEB.SOL* Albuterol 2.5 MG/Ipratropium 0.5 MG 3 ML INH SCH ×4 (01:35→20:26)
[2017-06-28] MEDS: Heparin VIAL(*) 5000 UNITS/ML VIAL (FIVE THOUSAND) SUBCUT SCH ×3 (05:12→21:25)
[2017-06-28 05:28] LABS: EGFR Non-African American 120.6 (>60)
[2017-06-28] MEDS: Mometasone/Formoter 200/5 MDI INH SCH ×2 (07:38→20:26)
[2017-06-28] MEDS: Nystatin TOP POWDER* 15 GM BTL TOPICAL SCH ×3 (09:01→21:25)
[2017-06-28] MEDS: guaiFENesin ER TAB 600 MG PO SCH ×2 (09:01→20:18)
[2017-06-28] MEDS: cefTRIAXone(*) 1 GM in D5W 50 ML BAG* 50 ML IVPB SCH (13:00)
[2017-06-28] MEDS: Azithromycin IV(*) 500 MG in NS 0.9% 250 ML* 250 ML IVPB SCH (13:23)
--- NOTE | 2017-06-28 15:53 | PN ---
Subjective Date of Service: 06/28/17 Interval History: feeling much better, Down to 3 L 02 Objective Active Medications: Acetaminophen (Tylenol Tab*) 650 mg PO Q6H PRN PRN Reason: FEVER/PAIN Albuterol (Ventolin 2.5 Mg/3 Ml Neb.Joselyn*) 2.5 mg INH Q2H PRN PRN Reason: SOB/WHEEZING Last Admin: 06/25/17 16:31 Dose: 2.5 mg Albuterol/Ipratropium (Duoneb (Albuterol 2.5 Mg/Ipratropium 0.5 Mg)) 1 neb INH [id number] AWAKE [facility] Last Admin: 06/28/17 12:49 Dose: 1 neb Azithromycin (Zithromax Tab*) 500 mg PO 1300 [facility] Guaifenesin (Mucinex*) 1,200 mg PO BID [facility] Last Admin: 06/28/17 09:01 Dose: 1,200 mg Heparin Sodium (Porcine) (Heparin Vial(*)) 5,000 units SUBCUT Q8HR [facility] Last Admin: 06/28/17 14:33 Dose: 5,000 units Ceftriaxone Sodium 1 gm/ (Dextrose) 50 mls @ 200 mls/hr IVPB Q24H [facility] Last Admin: 06/28/17 13:00 Dose: 200 mls/hr Lorazepam (Ativan Tab(*)) 0.5 mg PO Q6H PRN PRN Reason: ANXIETY Last Admin: 06/27/17 09:36 Dose: 0.5 mg Methylprednisolone Sodium Succinate (Solu-Medrol 40 Mg) 40 mg IV 0000,0800, 1600 [facility] Last Admin: 06/28/17 09:01 Dose: 40 mg Mometasone Furoate/Formoterol Fumar (Dulera 200/5 Mdi*) 2 puff INH BID [facility] PRN Reason: Protocol Last Admin: 06/28/17 07:38 Dose: 2 puff Montelukast Sodium (Singulair Tab*) 10 mg PO BEDTIME [facility] Last Admin: 06/27/17 20:45 Dose: 10 mg Nystatin (Nystatin Top Powder*) 1 applic TOPICAL BID [facility] Last Admin: 06/28/17 09:01 Dose: Not Given Ondansetron HCl (Zofran Inj*) 4 mg IV Q6H PRN PRN Reason: NAUSEA Vital Signs - 8 hr 06/28/17 06/28/17 06/28/17 08:00 11:15 12:52 Temperature 97.6 F Pulse Rate 80 113 Respiratory 24 24 18 Rate Blood Pressure 125/33 (mmHg) O2 Sat by Pulse 93 90 Oximetry 06/28/17 15:17 Temperature 97.6 F Pulse Rate 84 Respiratory 16 Rate Blood Pressure 124/79 (mmHg) O2 Sat by Pulse 91 Oximetry Oxygen Devices in Use Now: Nasal Cannula - at 4L, High Flow Nasal Cannula Appearance: 72 yo F in nAD, aAOx3 Eyes: No Scleral Icterus, PERRLA Ears/Nose/Mouth/Throat: NL Teeth, Lips, Gums, Mucous Membranes Moist Neck: NL Appearance and Movements; NL JVP, Trachea Midline Respiratory: Symmetrical Chest Expansion and Respiratory Effort, - - decreased breath sounds b/l scant b/l mid lung wheezes Cardiovascular: NL Sounds; No Murmurs; No JVD, RRR Abdominal: NL Sounds; No Tenderness; No Distention, No Hepatosplenomegaly Lymphatic: No Cervical Adenopathy Extremities: No Edema, No Clubbing, Cyanosis Skin: No Rash or Ulcers, No Nodules or Sclerosis Neurological: Alert and Oriented x 3, NL Muscle Strength and Tone Result Diagrams: 06/27/17 05:50 06/28/17 04:51 Microbiology and Other Data: Microbiology 06/24/17 17:25 Legionella Urinary Antigen - Final Urine Negative Legionella Streptococcus pneumoniae Ag Screen - Final Negative S. pneumo Antigen 06/24/17 17:25 Nasal Screen MRSA (PCR)([facility]) - Final Nasal Mrsa Not Detected Assess/Plan/Problems-Billing Assessment: 72 yo F with h/o COPD(on at 2 L), diastolic CHF presents after an URI lasting 2 weeks with acute respiratory failure - Patient Problems (1) COPD exacerbation Comment: cont Solu Medrol (lower frequency to Q12H), cont STEVE nebs and antibiotics for acute COPD exacerbation leukocytosis resolved (2) Acute hypoxemic respiratory failure Comment: due to a combination of CHF and COPD down to 4 L02 (3) CHF (congestive heart failure) Comment: treated with Lasix IV x 2 days. today appears to be euvolemic troponin positive due to demand ischemia Echo shows EF 55-60%, mod pulm, HTN (4) DVT prophylaxis Comment: Heparin sub q Status and Disposition: inpatient
[2017-06-28] MEDS: Montelukast Sodium TAB* 10 MG PO SCH (20:18)
[2017-06-29] MEDS: Albuterol/Ipratropium NEB.SOL* Albuterol 2.5 MG/Ipratropium 0.5 MG 3 ML INH SCH ×4 (01:07→19:29)
[2017-06-29] MEDS: methylPREDNISolone SOD 40 MG* 1 ML VIAL IV SCH (03:54)
[2017-06-29] MEDS: Heparin VIAL(*) 5000 UNITS/ML VIAL (FIVE THOUSAND) SUBCUT SCH ×3 (05:36→21:39)
[2017-06-29] MEDS: Mometasone/Formoter 200/5 MDI INH SCH ×2 (08:34→20:27)
[2017-06-29] MEDS: Nystatin TOP POWDER* 15 GM BTL TOPICAL SCH ×2 (09:02→21:40)
[2017-06-29] MEDS: guaiFENesin ER TAB 600 MG PO SCH ×2 (09:02→21:39)
[2017-06-29] MEDS: cefTRIAXone(*) 1 GM in D5W 50 ML BAG* 50 ML IVPB SCH (12:37)
[2017-06-29] MEDS: Azithromycin TAB* 250 MG PO SCH (12:38)
[2017-06-29] MEDS ORDERED: Furosemide IV* 10 MG/ML 2 ML VIAL (20 MG) IV ONE (14:14)
--- NOTE | 2017-06-29 14:17 | PN ---
Subjective Date of Service: 06/29/17 Interval History: Pt would like to go home tomorrow. still SOB with exertion Objective Active Medications: Acetaminophen (Tylenol Tab*) 650 mg PO Q6H PRN PRN Reason: FEVER/PAIN Albuterol (Ventolin 2.5 Mg/3 Ml Neb.Joselyn*) 2.5 mg INH Q2H PRN PRN Reason: SOB/WHEEZING Last Admin: 06/25/17 16:31 Dose: 2.5 mg Albuterol/Ipratropium (Duoneb (Albuterol 2.5 Mg/Ipratropium 0.5 Mg)) 1 neb INH [id number] AWAKE [facility] Last Admin: 06/29/17 13:19 Dose: 1 neb Azithromycin (Zithromax Tab*) 500 mg PO 1300 [facility] Last Admin: 06/29/17 12:38 Dose: 500 mg Guaifenesin (Mucinex*) 1,200 mg PO BID [facility] Last Admin: 06/29/17 09:02 Dose: 1,200 mg Heparin Sodium (Porcine) (Heparin Vial(*)) 5,000 units SUBCUT Q8HR [facility] Last Admin: 06/29/17 13:58 Dose: 5,000 units Ceftriaxone Sodium 1 gm/ (Dextrose) 50 mls @ 200 mls/hr IVPB Q24H [facility] Last Admin: 06/29/17 12:37 Dose: 200 mls/hr Lorazepam (Ativan Tab(*)) 0.5 mg PO Q6H PRN PRN Reason: ANXIETY Last Admin: 06/27/17 09:36 Dose: 0.5 mg Methylprednisolone Sodium Succinate (Solu-Medrol 40 Mg) 40 mg IV Q12H [facility] Last Admin: 06/29/17 03:54 Dose: 40 mg Mometasone Furoate/Formoterol Fumar (Dulera 200/5 Mdi*) 2 puff INH BID [facility]EV[facility] PRN Reason: Protocol Last Admin: 06/29/17 08:34 Dose: 2 puff Montelukast Sodium (Singulair Tab*) 10 mg PO BEDTIME [facility] Last Admin: 06/28/17 20:18 Dose: 10 mg Nystatin (Nystatin Top Powder*) 1 applic TOPICAL BID [facility] Last Admin: 06/29/17 09:02 Dose: Not Given Ondansetron HCl (Zofran Inj*) 4 mg IV Q6H PRN PRN Reason: NAUSEA Vital Signs - 8 hr 06/29/17 06/29/17 06/29/17 07:20 07:21 11:07 Temperature 98.3 F 97.8 F Pulse Rate 65 104 Respiratory 28 20 20 Rate Blood Pressure 134/58 126/63 (mmHg) O2 Sat by Pulse 94 90 Oximetry 06/29/17 13:20 Temperature Pulse Rate 91 Respiratory Rate Blood Pressure (mmHg) O2 Sat by Pulse Oximetry Oxygen Devices in Use Now: Nasal Cannula Appearance: 72 yo F in nAD, AAOx3 Eyes: No Scleral Icterus, PERRLA Ears/Nose/Mouth/Throat: NL Teeth, Lips, Gums, Mucous Membranes Moist Neck: NL Appearance and Movements; NL JVP, Trachea Midline Respiratory: Symmetrical Chest Expansion and Respiratory Effort, - - decreaseb breath sounds b/l, wheezes b/l mid lungs Cardiovascular: NL Sounds; No Murmurs; No JVD, RRR Abdominal: NL Sounds; No Tenderness; No Distention Lymphatic: No Cervical Adenopathy Extremities: No Edema, No Clubbing, Cyanosis Skin: No Rash or Ulcers, No Nodules or Sclerosis Neurological: Alert and Oriented x 3, NL Muscle Strength and Tone Result Diagrams: 06/27/17 05:50 06/28/17 04:51 Microbiology and Other Data: Microbiology 06/24/17 17:25 Legionella Urinary Antigen - Final Urine Negative Legionella Streptococcus pneumoniae Ag Screen - Final Negative S. pneumo Antigen 06/24/17 17:25 Nasal Screen MRSA (PCR)([facility]) - Final Nasal Mrsa Not Detected Assess/Plan/Problems-Billing Assessment: 72 yo F with h/o COPD(on at 2 L), diastolic CHF presents after an URI lasting 2 weeks with acute respiratory failure - Patient Problems (1) COPD exacerbation Comment: switch Solu Medrol to PO Prednsione., cont STEVE nebs and antibiotics for acute COPD exacerbation. Pt still appears to be in exacerbation, but wants to go home tomorrow. leukocytosis resolved (2) Acute hypoxemic respiratory failure Comment: due to a combination of CHF and COPD down to 2.5 L02 (at home on 2 L) (3) CHF (congestive heart failure) Comment: treated with Lasix IV x 2 days. today will treat with one more dose of 20 mg IV Lasix, then start double the home dose of PO Lasix in AM troponin positive due to demand ischemia Echo shows EF 55-60%, mod pulm, HTN (4) DVT prophylaxis Comment: Heparin sub q Status and Disposition: inpatient
[2017-06-29] MEDS: Montelukast Sodium TAB* 10 MG PO SCH (21:39)
[2017-06-30] MEDS: Albuterol/Ipratropium NEB.SOL* Albuterol 2.5 MG/Ipratropium 0.5 MG 3 ML INH SCH ×4 (01:24→20:01)
[2017-06-30] MEDS: Heparin VIAL(*) 5000 UNITS/ML VIAL (FIVE THOUSAND) SUBCUT SCH ×3 (05:29→20:50)
[2017-06-30 06:46] LABS: EGFR Non-African American 103.7 (>60)
[2017-06-30] MEDS: Mometasone/Formoter 200/5 MDI INH SCH ×2 (07:39→20:01)
[2017-06-30] MEDS: Furosemide TAB* 20 MG PO SCH (08:51)
[2017-06-30] MEDS: predniSONE TAB* 50 MG PO SCH (08:51)
[2017-06-30] MEDS: Nystatin TOP POWDER* 15 GM BTL TOPICAL SCH ×2 (08:52→20:50)
[2017-06-30] MEDS: guaiFENesin ER TAB 600 MG PO SCH ×2 (08:52→20:50)
--- NOTE | 2017-06-30 13:10 | PN ---
Subjective Date of Service: 06/30/17 Interval History: Pt states overall she is feeling much better. She denies any pain. She states she is not nearly as SOB as she was with exertion. Today her stomach is bothering her. She states she has been having diarrhea about every time she stands up. Nursing is unaware of the complaint of frequent diarrhea. Objective Active Medications: Acetaminophen (Tylenol Tab*) 650 mg PO Q6H PRN PRN Reason: FEVER/PAIN Albuterol (Ventolin 2.5 Mg/3 Ml Neb.Joselyn*) 2.5 mg INH Q2H PRN PRN Reason: SOB/WHEEZING Last Admin: 06/25/17 16:31 Dose: 2.5 mg Albuterol/Ipratropium (Duoneb (Albuterol 2.5 Mg/Ipratropium 0.5 Mg)) 1 neb INH [id number] Last Admin: 06/30/17 07:37 Dose: 1 neb Azithromycin (Zithromax Tab*) 500 mg PO 1300 [facility] Last Admin: 06/29/17 12:38 Dose: 500 mg Furosemide (Lasix Tab*) 20 mg PO DAILY [facility] Last Admin: 06/30/17 08:51 Dose: 20 mg Guaifenesin (Mucinex*) 1,200 mg PO BID [facility] Last Admin: 06/30/17 08:52 Dose: 1,200 mg Heparin Sodium (Porcine) (Heparin Vial(*)) 5,000 units SUBCUT Q8HR [facility] Last Admin: 06/30/17 05:29 Dose: 5,000 units Ceftriaxone Sodium 1 gm/ (Dextrose) 50 mls @ 200 mls/hr IVPB Q24H [facility] Last Admin: 06/29/17 12:37 Dose: 200 mls/hr Lorazepam (Ativan Tab(*)) 0.5 mg PO Q6H PRN PRN Reason: ANXIETY Last Admin: 06/27/17 09:36 Dose: 0.5 mg Mometasone Furoate/Formoterol Fumar (Dulera 200/5 Mdi*) 2 puff INH BID STEVE PRN Reason: Protocol Last Admin: 06/30/17 07:39 Dose: 2 puff Montelukast Sodium (Singulair Tab*) 10 mg PO BEDTIME [facility] Last Admin: 06/29/17 21:39 Dose: 10 mg Nystatin (Nystatin Top Powder*) 1 applic TOPICAL BID [facility] Last Admin: 06/30/17 08:52 Dose: Not Given Ondansetron HCl (Zofran Inj*) 4 mg IV Q6H PRN PRN Reason: NAUSEA Prednisone (Deltasone Tab*) 50 mg PO DAILY [facility] Last Admin: 06/30/17 08:51 Dose: 50 mg Vital Signs - 8 hr 06/30/17 06/30/17 05:51 07:41 Temperature 98.0 F Pulse Rate 78 78 Respiratory 20 17 Rate Blood Pressure 118/49 (mmHg) O2 Sat by Pulse 90 91 Oximetry Oxygen Devices in Use Now: Nasal Cannula Appearance: Elderly female sitting up in chair, NAD Eyes: No Scleral Icterus Ears/Nose/Mouth/Throat: Mucous Membranes Moist Respiratory: Symmetrical Chest Expansion and Respiratory Effort, Clear to Auscultation - markedly diminished breath sounds in all lung shaikh Cardiovascular: NL Sounds; No Murmurs; No JVD, RRR, No Edema Abdominal: NL Sounds; No Tenderness; No Distention Extremities: No Clubbing, Cyanosis Skin: No Nodules or Sclerosis Neurological: Alert and Oriented x 3 Result Diagrams: 06/27/17 05:50 06/30/17 07:35 Microbiology and Other Data: Microbiology 06/24/17 17:25 Legionella Urinary Antigen - Final Urine Negative Legionella Streptococcus pneumoniae Ag Screen - Final Negative S. pneumo Antigen 06/24/17 17:25 Nasal Screen MRSA (PCR)([facility]) - Final Nasal Mrsa Not Detected Assess/Plan/Problems-Billing 72 yo F with h/o COPD (on 02 at 2 L), diastolic CHF presents after an URI lasting 2 weeks with acute respiratory failure - Patient Problems (1) Acute hypoxemic respiratory failure Current Visit: Yes Status: Acute Code(s): J96.01 - ACUTE RESPIRATORY FAILURE WITH HYPOXIA SNOMED Code(s): 527599078 Comment: Secondary to a combination of acute diastolic CHF and COPD. She is now on 1.5L O2 (home setting is 2L). (2) COPD exacerbation Current Visit: Yes Status: Acute Priority: High Code(s): J44.1 - CHRONIC OBSTRUCTIVE PULMONARY DISEASE W (ACUTE) EXACERBATION SNOMED Code(s): 829240211757939 Comment: Still with poor air movement but overall reportedly much improved. She is ok staying another day to ensure her nausea and diarrhea improve. Continue prednisone, nebs and ceftriaxone for 1 more day as she will complete 7 days of therapy tomorrow. Ambulate with assistance. (3) Diastolic CHF Current Visit: Yes Status: Acute Code(s): I50.30 - UNSPECIFIED DIASTOLIC ( CONGESTIVE) HEART FAILURE SNOMED Code(s): 863073314 Comment: The patient was felt to have acute diastolic CHF during this admission. She has recieved IV lasix but now transitioned to oral. Will continue to monitor respiratory status and volume status. The patient had an elevated troponin but it was felt to be due to demand ischemia. (4) DVT prophylaxis Current Visit: Yes Status: Acute Code(s): JQQ5712 - SNOMED Code(s): 701612781 Comment: SQ heparin (5) DNR (do not resuscitate) Current Visit: Yes Status: Acute Status and Disposition: .
[2017-06-30] MEDS: Azithromycin TAB* 250 MG PO SCH (13:53)
[2017-06-30] MEDS: cefTRIAXone(*) 1 GM in D5W 50 ML BAG* 50 ML IVPB SCH (14:32)
[2017-06-30] MEDS: Montelukast Sodium TAB* 10 MG PO SCH (20:50)
[2017-07-01] MEDS: Albuterol/Ipratropium NEB.SOL* Albuterol 2.5 MG/Ipratropium 0.5 MG 3 ML INH SCH ×3 (01:24→13:42)
[2017-07-01] MEDS: Heparin VIAL(*) 5000 UNITS/ML VIAL (FIVE THOUSAND) SUBCUT SCH ×2 (05:17→13:22)
[2017-07-01 06:16] LABS: Hematocrit 38 % (35-47); Hemoglobin 12.5 g/dl (12.0-16.0); Mean Corpuscular HGB Conc 33 g/dl (31-36); Mean Corpuscular Hemoglobin 30 pg (27-31); Mean Corpuscular Volume 92 fL (80-97); Mean Platelet Volume 7 um3 (7.4-10.4); Platelet Count 515 10^3/ul (150-450); Red Blood Count 4.14 10^6/ul (4.0-5.4); Red Cell Distribution Width 15 % (10.5-15); White Blood Count 7.9 10^3/ul (3.5-10.8)
[2017-07-01 06:30] LABS: EGFR Non-African American 112.8 (>60)
[2017-07-01] MEDS: predniSONE TAB* 50 MG PO SCH (07:36)
[2017-07-01] MEDS: Furosemide TAB* 20 MG PO SCH (07:36)
[2017-07-01] MEDS: guaiFENesin ER TAB 600 MG PO SCH (07:36)
[2017-07-01] MEDS: Nystatin TOP POWDER* 15 GM BTL TOPICAL SCH (07:37)
[2017-07-01] MEDS: Mometasone/Formoter 200/5 MDI INH SCH (08:01)
[2017-07-01 11:32] VITALS: BP 112/54
[2017-07-01] MEDS: cefTRIAXone(*) 1 GM in D5W 50 ML BAG* 50 ML IVPB SCH (11:43)
--- NOTE | 2017-07-02 13:41 | DS ---
CC: Dr. Alas * DISCHARGE SUMMARY: DATE OF ADMISSION: 06/24/17 DATE OF DISCHARGE: 07/01/17 PRIMARY CARE PROVIDER: Dr. Alas. PRINCIPAL DIAGNOSES: Acute hypoxic respiratory failure secondary to chronic obstructive pulmonary disease exacerbation and diastolic congestive heart failure exacerbation. SECONDARY DIAGNOSIS: Thrombocytosis - likely reactive. DISCHARGE MEDICATIONS: 1. Combivent Respimat 2 puffs inhaled q.6 hours p.r.n. shortness of breath. 2. Spiriva 1 puff inhaled daily. 3. Singulair 10 mg p.o. daily. 4. Symbicort 160/4.5 two puffs inhaled twice daily. 5. Prednisone 40 mg p.o. daily x3 days, then 30 mg x3 days, then 20 mg x3 days , then 10 mg x3 days. 6. Guaifenesin ER 1200 mg p.o. b.i.d. p.r.n. congestion. 7. Lasix 20 mg p.o. daily (increased dose). HOSPITAL COURSE: Ms. Ames is a 72-year-old female who presented to the emergency room on 06/24/17 with complaints of severe dyspnea for 1 day. The patient was admitted for presumed COPD exacerbation. Given the patient's significantly elevated CRP, she was started on antibiotics. It was also felt given the COPD exacerbation and possible respiratory infection that the patient needed IV fluids and this was administered. The patient ultimately needed to be transferred to the ICU for Vapotherm. She continued to receive treatment for her COPD exacerbation, but in addition was started on IV Lasix. With IV Lasix, she had a very good response. The patient had a mildly elevated troponin that was felt to be due to demand ischemia related to her severe COPD exacerbation and diastolic CHF. Transthoracic echocardiogram was performed, which revealed a technically difficult study due to the patient's body habitus and COPD history. However, global left ventricular wall motion and contractility were felt to be within normal limits with a normal ejection fraction of 55% to 60%. Assessment of diastolic function was nondiagnostic. There was no significant valvular disease. There was mild to moderate pulmonary hypertension noted. No significant changes were noted on this echocardiogram compared to the one obtained in November 2015. Ultimately, the patient was able to be weaned from the Vapotherm is back to her home O2 setting of 2 L. The patient states at this time point, she feels that she is ready for discharge home. She has completed her antibiotic therapy. She will remain on a prednisone taper over the next 12 days. She still has markedly diminished breath sounds on exam. However, the patient feels that she can lounge at her apartment just as she can here and feels that she will be able to manage getting to the bathroom and to the kitchen. On the day of discharge, the patient is awake, alert and oriented, sitting up in a chair, in no acute distress. Her cardiac exam reveals a normal S1, S2 with a regular rate and rhythm. No lower extremity edema is noted. Pulmonary exam reveals markedly diminished breath sounds in all lung shaikh, but no crackles are identified. Abdominal exam reveals a soft, nontender, nondistended abdomen. At this point, the patient is stable for discharge home. She has completed a full course of antibiotics. She will remain on the prednisone taper. She will continue with her usual inhalers and will be set up for a nebulizer at home through [facility]. The patient may benefit from pulmonary consultation, but she can be referred by her primary care provider to Dr. Loredo as an outpatient. FOLLOWUP CONCERNS: The patient is being discharged home today 07/01/17. ACTIVITY LEVEL: As tolerated. DIET: Heart healthy. CONDITION ON DISCHARGE: Stable. TIME SPENT: Thirty-five minutes was spent discharging this patient. [id number]/CPS #: [id number] MTDD
== END 2017-07-01 17:15 | disposition home or self-care (01) | DRG 189 ==
LOC: ED 06:33 → ICU 11:18 → MEDTELE 06-27 10:06 → MED 06-29 14:58
PROVIDERS: ADMIT Internal Medicine; ATTEND Hospitalist
PROC: 5A09457 Assistance with Respiratory Ventilation, 24-96 Consecutive Hours, Continuous Positive Airway Pressure (ICD-10-PCS; principal; 2017-06-24)
DX: J96.21 Acute and chronic respiratory failure with hypoxia (principal); I50.33 Acute on chronic diastolic (congestive) heart failure; I24.8 Other forms of acute ischemic heart disease; I27.20 Pulmonary hypertension, unspecified; J44.1 Chronic obstructive pulmonary disease with (acute) exacerbation; D47.3 Essential (hemorrhagic) thrombocythemia; R74.8 Abnormal levels of other serum enzymes; J96.12 Chronic respiratory failure with hypercapnia; Z99.81 Dependence on supplemental oxygen; Z79.899 Other long term (current) drug therapy; Z88.6 Allergy status to analgesic agent; Z80.1 Family history of malignant neoplasm of trachea, bronchus and lung; Z80.0 Family history of malignant neoplasm of digestive organs; Z80.9 Family history of malignant neoplasm, unspecified; Z82.49 Family history of ischemic heart disease and other diseases of the circulatory system; Z83.3 Family history of diabetes mellitus; Z87.891 Personal history of nicotine dependence; Z66 Do not resuscitate
CPT/HCPCS: 36415; 36600; 71045; 80048; 80053; 80061; 81003; 81015; 82803; 83036; 83605; 83735; 83880; 84145; 84484; 85025; 85027; 85610; 85730; 86140; 87040; 87086; 87502; 87641; 87899; 93005; 93306; 94640; 94760; 99284; A9270-GY; J0456; J0696; J1642; J1644; J1940; J2920; J2930; J3475; J7512

== ENCOUNTER 2020-07-18 15:07 | Inpatient (IN) ==
[2020-07-18] MEDS ORDERED: NS 0.9% 1000 ml BAG 1,000 ML IV ONE (15:17)
[2020-07-18 16:21] LABS: Hematocrit 37 % (35-47); Hemoglobin 12.4 g/dL (12.0-16.0); Mean Corpuscular HGB Conc 33 g/dL (31-36); Mean Corpuscular Hemoglobin 29 pg (27-31); Mean Corpuscular Volume 86 fL (80-97); Red Blood Count 4.33 10^6 /uL (3.70-4.87); Red Cell Distribution Width 16 % (10-15); White Blood Count 15.5 10^3/uL (3.5-10.8)
[2020-07-18 16:25] LABS: ABS Basophils 0.1 10^3/ul (0-0.2); ABS Eosinophils 0.2 10^3/ul (0-0.6); ABS Lymphocytes 0.8 10^3/ul (1.0-4.8); ABS Monocytes 0.9 10^3/ul (0-0.8); ABS Neutrophils 13.6 10^3/ul (1.5-7.7); Eosinophil % 1.2 %; Lymphocyte % 5.3 %
[2020-07-18 16:26] LABS: Albumin 3.7 g/dL (3.2-5.2); Albumin/Globulin Ratio 0.9 (1-3); BUN/Creatinine Ratio 15.3 (8-20); Calcium 9.3 mg/dL (8.6-10.3); EGFR African American 119.6 (>60); EGFR Non-African American 98.8 (>60); Globulin 4.3 g/dL (2-4); INR 1.11 (0.82-1.09); Total Bilirubin 0.4 mg/dL (0.2-1.0)
[2020-07-18 16:43] LABS: Mean Platelet Volume 7.3 fL (7.4-10.4); Platelet Count 446 10^3/uL (150-450)
[2020-07-18] MEDS ORDERED: Albuterol/Ipratropium NEB.SOL (2.5/0.5 MG) 3 ML NEB.SOLN INH ONE (18:12)
[2020-07-18 18:26] LABS: Activated Partial Thrombo Time 25.5 seconds (26.0-38.0)
[2020-07-18] MEDS ORDERED: Furosemide 40 mg/4 ml IV VIAL IV ONE (18:27)
[2020-07-18] MEDS ORDERED: Iohexol 350 (CONTRAST) 500 ML MDV IV ONE (18:38)
[2020-07-18] MEDS ORDERED: methylPREDNISolone 125 mg 2 ML VIAL IV ONE (20:35)
[2020-07-18] MEDS ORDERED: Ondansetron 4 mg VIAL 2 MG/ML 2 ml VIAL IV PRN (21:30)
[2020-07-18] MEDS ORDERED: Albuterol/Ipratropium NEB.SOL (2.5/0.5 MG) 3 ML NEB.SOLN INH PRN (21:41)
[2020-07-18] MEDS ORDERED: Albuterol 2.5mg/3 ml (0.083%) NEB.SOLN INH SCH (23:00)
[2020-07-19 00:23] LABS: Influenza A Molecular Negative (Negative); Influenza B Molecular Negative (Negative)
[2020-07-19] MEDS: Mometasone/Formoter 200/5 MDI INH SCH ×3 (00:34→20:00)
[2020-07-19] MEDS: Albuterol HFA INHALER 8 gm MDI INH PRN ×2 (01:57→08:22)
[2020-07-19] MEDS: Enoxaparin 40 MG/0.4 ML SYR SUBCUT SCH ×2 (02:10→20:03)
[2020-07-19] MEDS: Nystatin TOP POWDER 15 GM BTL TOPICAL SCH ×4 (02:10→20:04)
[2020-07-19 04:55] LABS: ABS Lymphocytes 0.5 10^3/ul (1.0-4.8); ABS Monocytes 0.2 10^3/ul (0-0.8); ABS Neutrophils 10.9 10^3/ul (1.5-7.7); Hematocrit 37 % (35-47); Hemoglobin 11.7 g/dL (12.0-16.0); Lymphocyte % 4.1 %; Mean Corpuscular HGB Conc 32 g/dL (31-36); Mean Corpuscular Hemoglobin 28 pg (27-31); Mean Corpuscular Volume 88 fL (80-97); Mean Platelet Volume 7.2 fL (7.4-10.4); Platelet Count 412 10^3/uL (150-450); Red Blood Count 4.16 10^6 /uL (3.70-4.87); Red Cell Distribution Width 15 % (10-15); White Blood Count 11.7 10^3/uL (3.5-10.8)
[2020-07-19 05:06] LABS: BUN/Creatinine Ratio 18.8 (8-20); Calcium 9.2 mg/dL (8.6-10.3); EGFR African American 151.7 (>60); EGFR Non-African American 125.4 (>60)
[2020-07-19] MEDS: SPIRIVA Respimat (tiotropium) 2.5 mcg/inh Inhaler INH SCH (08:36)
[2020-07-19] MEDS ORDERED: Influenza VAC *QUAD* 2020-21* 0.5 ML SYRINGE IM ONE (09:00)
[2020-07-19] MEDS: methylPREDNISolone SOD 40 mg/ml 1 ml VIAL IV SCH ×2 (09:20→20:03)
[2020-07-19] MEDS ORDERED: Azithromycin 500 mg/250 ml NS 500 MG/250 ML BAG IVPB ONE (09:25)
[2020-07-19 10:13] LABS: C Reactive Protein 110.86 mg/L (<8.01)
[2020-07-20 07:04] LABS: ABS Lymphocytes 0.8 10^3/ul (1.0-4.8); ABS Monocytes 0.2 10^3/ul (0-0.8); Hematocrit 37 % (35-47); Lymphocyte % 7.6 %; Mean Corpuscular HGB Conc 33 g/dL (31-36); Mean Corpuscular Hemoglobin 29 pg (27-31); Mean Corpuscular Volume 88 fL (80-97); Mean Platelet Volume 7.1 fL (7.4-10.4); Platelet Count 458 10^3/uL (150-450); Red Blood Count 4.18 10^6 /uL (3.70-4.87); Red Cell Distribution Width 16 % (10-15)
[2020-07-20] MEDS: Nystatin TOP POWDER 15 GM BTL TOPICAL SCH (07:20)
[2020-07-20 07:26] LABS: Calcium 9.8 mg/dL (8.6-10.3); EGFR African American 144.8 (>60); EGFR Non-African American 119.6 (>60); Potassium 4.6 mmol/L (3.5-5.0)
[2020-07-20] MEDS: Mometasone/Formoter 200/5 MDI INH SCH (07:49)
[2020-07-20] MEDS: SPIRIVA Respimat (tiotropium) 2.5 mcg/inh Inhaler INH SCH (07:49)
[2020-07-20 12:29] VITALS: BP 114/51
== END 2020-07-20 13:35 | disposition home or self-care (01) | DRG 189 ==
LOC: ED 15:07 → MED 21:30
PROVIDERS: ADMIT Internal Medicine; ATTEND Internal Medicine

== ENCOUNTER 2020-09-28 16:56 | Inpatient (IN) ==
[2020-09-28 18:23] LABS: Hematocrit 36 % (35-47); Hemoglobin 11.6 g/dL (12.0-16.0); Mean Corpuscular HGB Conc 33 g/dL (31-36); Mean Corpuscular Hemoglobin 29 pg (27-31); Mean Corpuscular Volume 89 fL (80-97); Mean Platelet Volume 7.1 fL (7.4-10.4); Platelet Count 549 10^3/uL (150-450); Red Blood Count 4.03 10^6 /uL (3.70-4.87); Red Cell Distribution Width 16 % (10-15)
[2020-09-28 18:36] LABS: Activated Partial Thrombo Time 27.2 seconds (26.0-38.0); INR 1.23 (0.82-1.09)
[2020-09-28 18:47] LABS: Troponin I 0.01 ng/mL (<0.03)
[2020-09-28 18:52] LABS: ALT 22 U/L (7-52); Albumin 2.9 g/dL (3.2-5.2); Albumin/Globulin Ratio 0.7 (1-3); Alkaline Phosphatase 91 U/L (34-104); Blood Urea Nitrogen 12 mg/dL (6-24); C Reactive Protein 305.94 mg/L (<8.01); CO2 Carbon Dioxide 40 mmol/L (22-32); Chloride 86 mmol/L (101-111); EGFR African American 172.3 (>60); EGFR Non-African American 142.4 (>60); Globulin 4.1 g/dL (2-4); Glucose 123 mg/dL (70-100); Sodium 133 mmol/L (135-145)
[2020-09-28 18:59] LABS: Anion Gap 7 mmol/L (2-11)
[2020-09-28 19:14] LABS: LDH 209 U/L (140-271)
[2020-09-28] MEDS ORDERED: Azithromycin 500 mg/250 ml NS 500 MG/250 ML BAG IVPB ONE (19:14)
[2020-09-28] MEDS ORDERED: cefTRIAXone 2 GM ADDV.VIAL 2 GM in NS 0.9% 100 ml BAG 100 ML IVPB ONE (19:14)
[2020-09-28] MEDS ORDERED: NS 0.9% 1000 ml BAG 1,000 ML IV ONE (19:14)
[2020-09-28 19:18] LABS: Influenza A Molecular Negative (Negative); Influenza B Molecular Negative (Negative)
[2020-09-28 19:24] LABS: Ferritin 453.2 ng/mL (11-307)
[2020-09-28 19:30] LABS: ABS Lymphocytes 0.6 10^3/ul (1.0-4.8); ABS Monocytes 1.6 10^3/ul (0-0.8); ABS Neutrophils 23.7 10^3/ul (1.5-7.7); Eosinophil % 0.1 %; Lymphocyte % 2.4 %
[2020-09-28] MEDS ORDERED: Furosemide 40 mg/4 ml IV VIAL IV ONE (20:35)
[2020-09-28 20:40] LABS: Potassium Redraw 3.4 mmol/L (3.5-5.0)
[2020-09-28] MEDS ORDERED: Enoxaparin 30 MG/0.3 ML SYR SUBCUT SCH (21:00)
[2020-09-28] MEDS ORDERED: cefTRIAXone 1 gm/50 mL NS BAG 1 GM/50 ML BAG IVPB SCH (21:00)
[2020-09-28] MEDS ORDERED: Budesonide/Formote 160/4.5(NF) MDI INH SCH (21:00)
[2020-09-28 21:42] LABS: Urine Appearance Clear; Urine Bilirubin Negative (Negative); Urine Blood Negative (Negative); Urine Color Yellow; Urine Glucose Negative (Negative); Urine Ketones Negative (Negative); Urine Nitrite Negative (Negative); Urine Protein Negative (Negative); Urine Urobilinogen Negative (Negative)
[2020-09-28 22:00] LABS: Urine Bacteria 1+ (Absent); Urine Red Blood Cell Trace(0-2/hpf) (Absent); Urine Squamous Epithelial Cell Present (Absent); Urine White Blood Cell Trace(0-5/hpf) (Absent)
[2020-09-28] MEDS: Mometasone/Formoter 200/5 MDI INH SCH (23:29)
[2020-09-29 00:58] LABS: Magnesium 1.9 mg/dL (1.9-2.7)
[2020-09-29] MEDS ORDERED: Albuterol/Ipratropium NEB.SOL (2.5/0.5 MG) 3 ML NEB.SOLN INH SCH (03:00)
[2020-09-29] MEDS ORDERED: Magnesium Sulfate 2 gm BAG 2 GM/50 ML BAG IVPB ONE ×2 (04:00→07:00)
[2020-09-29] MEDS ORDERED: Potassium Chlor 10 meq TAB PO ONE ×3 (07:31→13:00)
[2020-09-29] MEDS ORDERED: SPIRIVA Respimat (tiotropium) 2.5 mcg/inh Inhaler INH SCH (09:00)
[2020-09-29] MEDS: Mometasone/Formoter 200/5 MDI INH SCH (09:01)
[2020-09-29] MEDS: Albuterol HFA INHALER 8 gm MDI INH SCH ×3 (09:03→20:19)
[2020-09-29 09:43] LABS: Hematocrit 34 % (35-47); Mean Corpuscular HGB Conc 32 g/dL (31-36); Mean Corpuscular Hemoglobin 29 pg (27-31); Mean Corpuscular Volume 89 fL (80-97); Mean Platelet Volume 7.2 fL (7.4-10.4); Platelet Count 596 10^3/uL (150-450); Red Blood Count 3.84 10^6 /uL (3.70-4.87); Red Cell Distribution Width 17 % (10-15); White Blood Count 19.3 10^3/uL (3.5-10.8)
[2020-09-29 09:45] LABS: ABS Basophils 0.1 10^3/ul (0-0.2); ABS Eosinophils 0.1 10^3/ul (0-0.6); ABS Lymphocytes 1.2 10^3/ul (1.0-4.8); ABS Monocytes 1.6 10^3/ul (0-0.8); ABS Neutrophils 16.4 10^3/ul (1.5-7.7); Eosinophil % 0.3 %
[2020-09-29 10:10] LABS: Albumin 2.8 g/dL (3.2-5.2); Albumin/Globulin Ratio 0.7 (1-3); EGFR Non-African American 146.3 (>60); Globulin 4.1 g/dL (2-4); Magnesium 2.5 mg/dL (1.9-2.7); Potassium 3.1 mmol/L (3.5-5.0); Total Bilirubin 0.3 mg/dL (0.2-1.0); Total Protein 6.9 g/dL (6.4-8.9)
[2020-09-29] MEDS ORDERED: cefTRIAXone 1 gm/50 mL NS BAG 1 GM/50 ML BAG IVPB SCH (20:00)
[2020-09-29] MEDS ORDERED: Enoxaparin 40 MG/0.4 ML SYR SUBCUT SCH (21:00)
[2020-09-30] MEDS: Albuterol HFA INHALER 8 gm MDI INH SCH ×2 (00:34→08:17)
[2020-09-30 07:08] LABS: Hematocrit 39 % (35-47); Hemoglobin 12.8 g/dL (12.0-16.0); Mean Corpuscular HGB Conc 33 g/dL (31-36); Mean Corpuscular Hemoglobin 29 pg (27-31); Mean Corpuscular Volume 90 fL (80-97); Red Cell Distribution Width 17 % (10-15); White Blood Count 17.9 10^3/uL (3.5-10.8)
[2020-09-30] MEDS ORDERED: Albuterol HFA INHALER 8 gm MDI INH PRN (08:14)
[2020-09-30 08:19] LABS: Platelet Count Platelets clumped. 10^3/uL (150-450)
[2020-09-30 11:46] VITALS: BP 112/43
[2020-09-30 13:39] LABS: Calcium 9.4 mg/dL (8.6-10.3); EGFR Non-African American 150.4 (>60); Magnesium 2.2 mg/dL (1.9-2.7); Potassium 4.2 mmol/L (3.5-5.0)
[2020-09-30] MEDS ORDERED: COVID-19 VACCINE, AD26(JANSSEN)/PF 0.5 ML IM ONE (14:00)
[2020-09-30 14:09] LABS: Hematocrit 35 % (35-47); Hemoglobin 11.1 g/dL (12.0-16.0); Mean Corpuscular HGB Conc 32 g/dL (31-36); Mean Corpuscular Hemoglobin 29 pg (27-31); Mean Corpuscular Volume 89 fL (80-97); Mean Platelet Volume 7.6 fL (7.4-10.4); Platelet Count 615 10^3/uL (150-450); Red Blood Count 3.87 10^6 /uL (3.70-4.87); Red Cell Distribution Width 17 % (10-15); White Blood Count 14.1 10^3/uL (3.5-10.8)
[2020-09-30 14:21] LABS: ABS Eosinophils 0.1 10^3/ul (0-0.6); ABS Lymphocytes 0.9 10^3/ul (1.0-4.8); ABS Monocytes 0.7 10^3/ul (0-0.8); ABS Neutrophils 12.4 10^3/ul (1.5-7.7); Eosinophil % 0.8 %; Lymphocyte % 6.4 %
== END 2020-09-30 15:35 | disposition home or self-care (01) | DRG 193 ==
LOC: ED 16:56 → MED 20:27
PROVIDERS: ADMIT Student in an Organized Health Care Education/Training Program; ATTEND Internal Medicine

== ENCOUNTER 2023-10-31 07:23 | Observation (INO) ==
[2023-10-31] MEDS: methylPREDNISolone SOD SUCC 125 mg 2 ML VIAL IV ONE (08:04)
[2023-10-31 08:17] LABS: Hematocrit 40.1 % (35-45); INR 0.99 (0.83-1.13); Mean Corpuscular Hemoglobin 29.2 pg (27-33); Mean Corpuscular Hgb Conc 32.3 g/dL (31-36); Mean Corpuscular Volume 90.6 fL (80-97); Red Blood Count 4.43 10^6/uL (3.63-4.92); Red Cell Distribution Width 15.5 % (12-17)
[2023-10-31] MEDS: Albuterol/Ipratropium NEB.SOL (2.5/0.5 MG) 3 ML NEB.SOLN INH ONE (08:18)
[2023-10-31 08:30] LABS: High Sens Troponin Baseline 7 pg/mL (<15)
[2023-10-31 08:44] LABS: ALT 4 U/L (7-52); Albumin 3.9 g/dL (3.2-5.2); Albumin/Globulin Ratio 1.4 (1-3); Alkaline Phosphatase 57 U/L (35-149); Anion Gap 5 mmol/L (2-16); Blood Urea Nitrogen 15 mg/dL (6-24); C Reactive Protein 9.33 mg/L (<8.01); CO2 Carbon Dioxide 34 mmol/L (22-32); Calcium 9.3 mg/dL (8.6-10.3); Chloride 97 mmol/L (101-111); Creatinine, Serum 0.52 mg/dL (0.51-0.95); Globulin 2.8 g/dL (2-4); Glucose 130 mg/dL (70-100); Sodium 136 mmol/L (135-145); Total Bilirubin 0.3 mg/dL (0.2-1.0); Total Protein 6.7 g/dL (6.4-8.9); eGFR CKD-EPI 93.9 (>60)
[2023-10-31 09:31] LABS: ABS Basophils 0.1 10^3/uL (0.0-0.1); ABS Eosinophils 0.1 10^3/uL (0.0-0.5); ABS Lymphocytes 0.8 10^3/uL (1.0-4.8); ABS Monocytes 0.4 10^3/uL (0.0-0.9); ABS Neutrophils 5.3 10^3/uL (1.5-7.6); ABS Nucleated RBC 0.01 10^3/ul; Mean Platelet Volume 7.5 fL (7.5-11.2); Nucleated Red Blood Cells % 0.1 %/100WBC (0.0-0.8); Platelet Count 414 10^3/uL (150-450); White Blood Count 6.7 10^3/uL (3.8-11.8)
[2023-10-31] MEDS: Iohexol 300 (CONTRAST) 10 ML SDV IV ONE (09:43)
[2023-10-31] MEDS: Lactated Ringers 1000 ml BAG 1,000 ML IV ONE (09:48)
[2023-10-31 09:55] LABS: High Sensitivity Troponin 1 Hr 8 pg/mL (<15)
[2023-10-31] MEDS: Amoxicillin/Clavul 875/125 TAB (Augmentin 875 tab) PO ONE (10:42)
[2023-10-31 12:23] LABS: Potassium Redraw 4.3 mmol/L (3.5-5.0)
[2023-10-31] MEDS ORDERED: Albuterol 2.5mg/3 ml (0.083%) NEB.SOLN INH PRN (16:06)
[2023-10-31] MEDS: Azithromycin 500 mg/250 ml NS 500 MG/250 ML BAG IVPB SCH (16:14)
[2023-10-31] MEDS ORDERED: Polyethylene Glycol 3350 17 GM PACKET PO PRN (16:36)
[2023-10-31] MEDS: cefTRIAXone 1 gm/50 mL D5W 1 GM/50 ML BAG IV SCH ×2 (18:33→18:39)
[2023-10-31] MEDS: FLUTICAS/UMECLI/VILANT 100-62.5-25 MDI (NF) INH SCH (18:38)
[2023-10-31] MEDS: Enoxaparin 40 MG/0.4 ML SYR SUBCUT SCH (18:38)
[2023-11-01] MEDS: Nystatin TOP POWDER 15 GM BTL TOPICAL SCH (01:16)
[2023-11-01] MEDS: Aspirin EC 81 mg TAB.EC (enteric coated) PO SCH (08:12)
[2023-11-01] MEDS: Albuterol 2.5mg/3 ml (0.083%) NEB.SOLN INH PRN (20:22)
[2023-11-03 14:23] VITALS: BP 115/57
== END 2023-11-03 15:00 | disposition home or self-care (01) ==
LOC: ED 07:23 → EDHOLD 07:23 → SUATTDRO 15:47 → MEDTELE 17:06
PROVIDERS: ADMIT Hospitalist; ATTEND Internal Medicine

== ENCOUNTER 2024-03-30 17:40 | Inpatient (IN) ==
[2024-03-30 17:58] LABS: PO2 Arterial 95 mmHg (80-100)
[2024-03-30 18:02] LABS: PCO2 Arterial 73 mmHg (35-45)
[2024-03-30] MEDS ORDERED: Lidocaine 1% VIAL 10 MG/ML 30 ML VIAL ONE (18:38)
[2024-03-30 18:39] LABS: ABS Basophils 0.1 10^3/uL (0.0-0.1); ABS Eosinophils 0.3 10^3/uL (0.0-0.5); ABS Lymphocytes 1.4 10^3/uL (1.0-4.8); ABS Monocytes 0.9 10^3/uL (0.0-0.9); ABS Neutrophils 6.8 10^3/uL (1.5-7.6); Eosinophil % 3.7 %; Hematocrit 40.1 % (35-45); Lymphocyte % 14.9 %; Mean Corpuscular Hemoglobin 29.7 pg (27-33); Mean Corpuscular Hgb Conc 32.4 g/dL (31-36); Mean Corpuscular Volume 91.7 fL (80-97); Mean Platelet Volume 7.7 fL (7.5-11.2); Platelet Count 438 10^3/uL (150-450); Red Blood Count 4.37 10^6/uL (3.63-4.92); Red Cell Distribution Width 15.1 % (12-17); White Blood Count 9.5 10^3/uL (3.8-11.8)
[2024-03-30 19:12] LABS: Albumin 4.1 g/dL (3.2-5.2); Albumin/Globulin Ratio 1.5 (1-3); Calcium 9.6 mg/dL (8.6-10.3); Creatinine, Serum 0.55 mg/dL (0.51-0.95); Globulin 2.7 g/dL (2-4); Potassium 3.8 mmol/L (3.5-5.0); Total Bilirubin 0.4 mg/dL (0.2-1.0); Total Protein 6.8 g/dL (6.4-8.9); eGFR CKD-EPI 92.6 (>60)
[2024-03-30] MEDS: Ondansetron 4 mg VIAL 2 MG/ML 2 ml VIAL IV ONE (19:14)
[2024-03-30] MEDS: fentaNYL 100 mcg/2 ml 50 MCG/ML VIAL IV SLOW PU ONE ×2 (19:14→20:35)
[2024-03-30] MEDS ORDERED: Ondansetron 4 mg VIAL 2 MG/ML 2 ml VIAL IV PRN (21:15)
[2024-03-30] MEDS: Cholecalciferol (VIT D3) 1,000 unit TAB PO SCH (22:38)
[2024-03-30] MEDS: NF: BUDESONIDE/GLYCOPYR/FORMOTEROL MDI (NF) INH SCH (22:55)
[2024-03-31 06:39] LABS: ABS Lymphocytes 0.6 10^3/uL (1.0-4.8); ABS Monocytes 0.1 10^3/uL (0.0-0.9); ABS Neutrophils 4.8 10^3/uL (1.5-7.6); Hematocrit 41.5 % (35-45); Hemoglobin 13.6 g/dL (11.5-14.3); Lymphocyte % 10.7 %; Mean Corpuscular Hgb Conc 32.9 g/dL (31-36); Mean Corpuscular Volume 91.3 fL (80-97); Mean Platelet Volume 7.5 fL (7.5-11.2); Platelet Count 409 10^3/uL (150-450); Red Blood Count 4.55 10^6/uL (3.63-4.92); Red Cell Distribution Width 14.8 % (12-17); White Blood Count 5.5 10^3/uL (3.8-11.8)
[2024-03-31 07:13] LABS: Albumin 4.2 g/dL (3.2-5.2); Albumin/Globulin Ratio 1.4 (1-3); Calcium 9.9 mg/dL (8.6-10.3); Creatinine, Serum 0.56 mg/dL (0.51-0.95); Potassium 4.7 mmol/L (3.5-5.0); Total Bilirubin 0.3 mg/dL (0.2-1.0); Total Protein 7.2 g/dL (6.4-8.9); eGFR CKD-EPI 92.2 (>60)
[2024-03-31] MEDS: Fluticasone NASAL SPRAY 50MCG 16 gm SPRAY BTL INTRANASAL SCH (08:22)
[2024-03-31] MEDS: Enoxaparin 40 MG/0.4 ML SYR SUBCUT SCH (08:23)
[2024-03-31] MEDS: Aspirin EC 81 mg TAB.EC (enteric coated) PO SCH (08:24)
[2024-03-31] MEDS: Vitamin THERAPEUTIC TAB PO SCH (08:24)
[2024-03-31] MEDS: SPIRIVA Respimat (tiotropium) 2.5 mcg/inh Inhaler INH SCH (16:57)
[2024-03-31] MEDS: Mometasone/Formoter 200/5 MDI INH SCH (16:57)
[2024-03-31] MEDS: Albuterol/Ipratropium NEB.SOL (2.5/0.5 MG) 3 ML NEB.SOLN INH PRN (16:59)
[2024-04-02 10:07] VITALS: BP 115/69
== END 2024-04-02 12:14 | disposition home or self-care (01) | DRG 199 ==
LOC: ED 17:40 → EDHOLD 17:40 → SUATTDRO 21:15 → OBSVTOIN 21:15 → MEDTELE 03-31 12:01
PROVIDERS: ADMIT Internal Medicine; ATTEND Internal Medicine

== ENCOUNTER 2024-05-10 12:31 | Inpatient (IN) ==
[2024-05-10] MEDS: Lactated Ringers 1000 ml BAG IV.FLUID IV ONE (14:49)
[2024-05-10 15:06] LABS: Hematocrit 35.8 % (35-45); Hemoglobin 11.5 g/dL (11.5-14.3); Mean Corpuscular Hemoglobin 29.4 pg (27-33); Mean Corpuscular Hgb Conc 32.1 g/dL (31-36); Mean Corpuscular Volume 91.7 fL (80-97); Platelet Count 381 10^3/uL (150-450); Red Blood Count 3.91 10^6/uL (3.63-4.92); Red Cell Distribution Width 15.5 % (12-17)
[2024-05-10] MEDS: Lactated Ringers 1000 ml BAG 1,000 ML IV ONE (15:41)
[2024-05-10 15:48] LABS: ABS Basophils 0.1 10^3/uL (0.0-0.1); ABS Lymphocytes 0.5 10^3/uL (1.0-4.8); ABS Monocytes 1.6 10^3/uL (0.0-0.9); ABS Neutrophils 28.8 10^3/uL (1.5-7.6); ABS Nucleated RBC 0.01 10^3/ul; Lymphocyte % 1.7 %; RBC Morphology Normal (Normal)
[2024-05-10] MEDS: Piperacillin/Tazobac 3.375 BAG 3.375 GM/100 ML BAG IV ONE (15:53)
[2024-05-10] MEDS: Acetaminophen IV 1 GM/100ML 1,000 MG/100 ML BAG IV ONE (15:54)
[2024-05-10 16:09] LABS: Venous Bicarbonate HCO3 28.1 mmol/L (24-28)
[2024-05-10 16:19] LABS: Albumin 3.6 g/dL (3.5-5.7); Albumin/Globulin Ratio 1.5 (1-3); C Reactive Protein 192.23 mg/L (<8.01); Calcium 9.1 mg/dL (8.6-10.3); Creatinine, Serum 0.6 mg/dL (0.51-0.95); Globulin 2.4 g/dL (2-4); Total Bilirubin 0.6 mg/dL (0.2-1.0); eGFR CKD-EPI 90.7 (>60)
[2024-05-10 16:31] LABS: INR 1.22 (0.85-1.14)
[2024-05-10 16:34] LABS: Potassium 3.7 mmol/L (3.5-5.0)
[2024-05-10] MEDS: Iodixanol 320 (CONTRAST) 100 ML SDV IV ONE (16:42)
[2024-05-10 17:07] LABS: High Sensitivity Troponin 1 Hr 9 pg/mL (<15)
[2024-05-10 18:32] LABS: Urine Appearance Clear; Urine Bilirubin Negative (Negative); Urine Blood Negative (Negative); Urine Color Yellow; Urine Glucose Negative (Negative); Urine Ketones 2+ (Negative); Urine Nitrite Negative (Negative); Urine Protein Trace (Negative); Urine Specific Gravity 1.047 (1.002-1.030); Urine Urobilinogen Negative (Negative); Urine pH 6.5 (5.0-8.0)
[2024-05-10 19:00] LABS: Urine Bacteria Absent /HPF (Absent); Urine Red Blood Cell 1+(3-5/hpf) /HPF (0-Trace); Urine Squamous Epithelial Cell Present /HPF (Absent); Urine White Blood Cell Trace(0-5/hpf) /HPF (0-Trace)
[2024-05-10] MEDS: Lactated Ringers 1000 ml BAG 1,000 ML IV SCH (20:15)
[2024-05-10] MEDS ORDERED: Albuterol/Ipratropium RESP(NF) MDI (Combivent Respimat) INH PRN (20:46)
[2024-05-10] MEDS ORDERED: Fluticasone NASAL SPRAY 50MCG 16 gm SPRAY BTL INTRANASAL PRN (20:46)
[2024-05-10] MEDS ORDERED: Albuterol/Ipratropium NEB.SOL (2.5/0.5 MG) 3 ML NEB.SOLN INH PRN (21:14)
[2024-05-10] MEDS: Enoxaparin 40 MG/0.4 ML SYR SUBCUT SCH (22:28)
[2024-05-10] MEDS: cefTRIAXone 1 gm/50 mL D5W 1 GM/50 ML BAG IV SCH (22:30)
[2024-05-11] MEDS: BUDESONIDE/GLYCOPYR/FORMOTEROL MDI (NF) INH SCH (01:26)
[2024-05-11 06:19] LABS: Hematocrit 35.7 % (35-45); Hemoglobin 11.5 g/dL (11.5-14.3); Mean Corpuscular Hemoglobin 29.7 pg (27-33); Mean Corpuscular Hgb Conc 32.3 g/dL (31-36); Mean Corpuscular Volume 91.9 fL (80-97); Mean Platelet Volume 7.5 fL (7.5-11.2); Platelet Count 344 10^3/uL (150-450); Red Blood Count 3.89 10^6/uL (3.63-4.92); Red Cell Distribution Width 15.7 % (12-17); White Blood Count 28.2 10^3/uL (3.8-11.8)
[2024-05-11 06:39] LABS: ABS Basophils 0.1 10^3/uL (0.0-0.1); ABS Lymphocytes 0.7 10^3/uL (1.0-4.8); ABS Neutrophils 26.4 10^3/uL (1.5-7.6); Lymphocyte % 2.4 %
[2024-05-11 07:14] LABS: Calcium 8.3 mg/dL (8.6-10.3); Creatinine, Serum 0.52 mg/dL (0.51-0.95); Potassium 3.6 mmol/L (3.5-5.0); eGFR CKD-EPI 93.9 (>60)
[2024-05-11 08:15] LABS: Magnesium 1.6 mg/dL (1.9-2.7)
[2024-05-11] MEDS: Potassium Chloride LIQUID 20 MEQ/15 ML LIQUID PO ONE (08:32)
[2024-05-11] MEDS: Aspirin EC 81 mg TAB.EC (enteric coated) PO SCH (08:33)
[2024-05-11] MEDS: Nystatin TOP POWDER 15 GM BTL TOPICAL SCH (08:33)
[2024-05-11] MEDS: NF: BUDESONIDE/GLYCOPYR/FORMOTEROL MDI (NF) INH SCH (08:34)
[2024-05-11] MEDS: Magnesium Sulfate 2 gm BAG 2 GM/50 ML BAG IVPB ONE (10:23)
[2024-05-11] MEDS: Iodixanol 320 (CONTRAST) 100 ML SDV IV ONE (12:27)
[2024-05-11] MEDS: Magnesium Sulfate IV 1GM/100ML 1 GM/100 ML BAG IV ONE (12:35)
[2024-05-12 06:23] LABS: ABS Lymphocytes 0.7 10^3/uL (1.0-4.8); ABS Neutrophils 17.8 10^3/uL (1.5-7.6); ABS Nucleated RBC 0.02 10^3/ul; Eosinophil % 0.1 %; Hematocrit 33.3 % (35-45); Hemoglobin 10.6 g/dL (11.5-14.3); Lymphocyte % 3.5 %; Mean Corpuscular Hemoglobin 29.1 pg (27-33); Mean Corpuscular Hgb Conc 31.7 g/dL (31-36); Mean Corpuscular Volume 91.8 fL (80-97); Mean Platelet Volume 7.7 fL (7.5-11.2); Nucleated Red Blood Cells % 0.1 %/100WBC (0.0-0.8); Platelet Count 344 10^3/uL (150-450); Red Blood Count 3.63 10^6/uL (3.63-4.92); Red Cell Distribution Width 15.5 % (12-17); White Blood Count 19.5 10^3/uL (3.8-11.8)
[2024-05-12 06:55] LABS: Calcium 8.2 mg/dL (8.6-10.3); Creatinine, Serum 0.39 mg/dL (0.51-0.95); Potassium 3.9 mmol/L (3.5-5.0); eGFR CKD-EPI 100.6 (>60)
[2024-05-12] MEDS ORDERED: Sulfur Hexaflouride MICROSPHR 25 MG VIAL IV PRN (08:38)
[2024-05-12] MEDS: Albuterol/Ipratropium NEB.SOL (2.5/0.5 MG) 3 ML NEB.SOLN INH SCH (11:17)
[2024-05-13 05:53] LABS: Hematocrit 32.6 % (35-45); Hemoglobin 10.9 g/dL (11.5-14.3); Mean Corpuscular Hemoglobin 30.2 pg (27-33); Mean Corpuscular Hgb Conc 33.3 g/dL (31-36); Mean Corpuscular Volume 90.9 fL (80-97); Mean Platelet Volume 7.9 fL (7.5-11.2); Platelet Count 424 10^3/uL (150-450); Red Blood Count 3.59 10^6/uL (3.63-4.92); Red Cell Distribution Width 15.2 % (12-17); White Blood Count 12.1 10^3/uL (3.8-11.8)
[2024-05-13 06:24] LABS: Calcium 9.5 mg/dL (8.6-10.3); Creatinine, Serum 0.5 mg/dL (0.51-0.95); Potassium 3.8 mmol/L (3.5-5.0); eGFR CKD-EPI 94.8 (>60)
[2024-05-13 06:49] LABS: ABS Monocytes 0.7 10^3/uL (0.0-0.9); ABS Neutrophils 10.3 10^3/uL (1.5-7.6); ABS Nucleated RBC 0.01 10^3/ul; Lymphocyte % 7.9 %
[2024-05-13 06:50] LABS: Basophilic Stippling 1+; Eosinophil % 0.1 %; Hypochromasia 1+; Nucleated Red Blood Cells % 0.1 %/100WBC (0.0-0.8)
[2024-05-13 09:51] VITALS: BP 97/51
== END 2024-05-13 15:10 | disposition home or self-care (01) | DRG 871 ==
LOC: EDHOLD 12:31 → ED 12:31 → MED 23:28
PROVIDERS: ADMIT Internal Medicine; ATTEND Internal Medicine